=== PATIENT | female | born 1945 | race Caucasian/White ===

== ENCOUNTER 2017-09-03 15:47 | Inpatient (IN) ==
[~2017-09-03 15:47] MED LIST: *HR* Norepinephrine 4 MG/4 ML VIAL IVC ONE
[2017-09-03] MEDS ORDERED: Furosemide 40 MG/4 ML VIAL IVP ONE (15:50)
[2017-09-03] MEDS ORDERED: methylPREDNISolone 125 MG/2 ML VIAL IVP ONE (15:50)
[2017-09-03] MEDS ORDERED: Ipratropium/Albuterol Neb 3 ML IH ONE ×2 (15:50→16:13)
--- NOTE | 2017-09-03 15:52 | Emergency Department Note ---
Disposition Clinical Impression: Respiratory failure, COPD exacerbation, Hypotension, LONNY (acute kidney injury) , Acute respiratory acidosis Disposition: Admitted As Inpatient Condition: Critical General Adult HPI - General Chief complaint: ED Shortness of Breath/Dyspnea Stated complaint: DEBBI Time Seen by Provider: 09/03/17 15:50 - Related Data Home Medications Medication Instructions Recorded Confirmed Albuterol Sulfate [Albuterol 2 puff IH Q4H PRN 09/03/17 09/03/17 Inhaler] Amitriptyline [Elavil] 50 mg PO HS 09/03/17 09/03/17 Budesonide/Formoterol 80/4.5 2 gm IH BIDR 09/03/17 09/03/17 [Symbicort 80/4.5] Citalopram Hydrobromide 20 mg PO DAILY 09/03/17 09/03/17 [Citalopram HBr] Cyclobenzaprine [Flexeril] 10 mg PO TID PRN 09/03/17 09/03/17 Famotidine [Pepcid] 40 mg PO DAILY 09/03/17 09/03/17 Gabapentin [Neurontin] 300 mg PO QID 09/03/17 09/03/17 Lisinopril/Hydrochlorothiazide 1 tab PO DAILY 09/03/17 09/03/17 [Zestoretic 20-25 mg Tablet] Montelukast [Singulair] 10 mg PO DAILY 09/03/17 09/03/17 Omeprazole [PriLOSEC] 20 mg PO DAILY 09/03/17 09/03/17 Simvastatin [Zocor] 40 mg PO DAILY 09/03/17 09/03/17 Sucralfate [Carafate] 1 gm PO QID 09/03/17 09/03/17 levoFLOXacin [Levofloxacin] 500 mg PO DAILY 09/03/17 09/03/17 Allergies Allergy/AdvReac Type Severity Reaction Status Date / Time No Known Allergies Allergy Verified 09/03/17 15:55 Past Medical History - Past Medical History Medical history: Reports: asthma, COPD Psychiatric history: Reports: anxiety - Social History Smoking Status: Current some day smoker Smokeless Tobacco Status: No Alcohol use: Reports: none Drug use: Reports: none Course Vital Signs Temperature 96.1 F L 09/03/17 15:49 Pulse Rate 91 09/03/17 15:49 Respiratory Rate 28 09/03/17 15:49 Blood Pressure 71/44 09/03/17 15:49 O2 Sat by Pulse Oximetry 88 09/03/17 15:49 Temperature 96.1 F L 09/03/17 15:49 Pulse Rate 80 09/03/17 17:45 Respiratory Rate 22 09/03/17 17:45 Blood Pressure 60/39 09/03/17 17:45 O2 Sat by Pulse Oximetry 91 09/03/17 17:41 Oxygen Delivery Oxygen Delivery Ventilator Procedures - Central Line Placement Right IJ Central Line Inserted*: Yes Central Line Insertion: emergent Procedural Pause: verify patient name and date of , timeout performed per policy, perform hand hygiene Patient Placed on Monitor/Pulse Ox: Yes During the Procedure: clinician is wearing sterile gloves, cap, mask,& gown during insertion, sterile field and sterile technique are maintained, patient's face is covered with drape or mask and wearing a cap, everyone in room is wearing a mask Central Line Prep: Chlorhexidine scrub, sterile drapes applied Prep the Procedure Site: apply chloraprep to the skin using a back and forth scrubbing motion, apply chloraprep for 30 seconds (upper body), 1-2 min ( femoral sites), allow prep to dry, drape the patient with a full body drape Local Anesthetic: lidocaine 1% Ultrasound Used for Placement: Yes Central Line Lumen Inserted: triple Post Procedure: sutured in place Patient Tolerated Procedure: well Complications: none - Intubation Time out performed: Yes sedative: Ketamine Laryngoscope: Geetha ET Tube Size: 7.5 ET Tube Uncuffed: No Tube Secured Location: lips Tube Placement Confirmation: visualized tube passing through cords, equal breath sounds bilaterally, confirmation by capnometry Patient Tolerated Procedure: well Intubation Complications: none Medical Decision Making - Lab Data Result diagrams: 09/03/17 16:12 09/03/17 16:12 Lab Results 09/03/17 09/03/17 09/03/17 Range/Units 15:50 16:12 16:12 WBC 7.1 (4.3-11.1) K/mcL RBC 4.00 (3.82-4.97) M/mcL Hgb 12.3 (11.5-15.4) g/dL Hct 37.6 (35.3-44.9) % MCV 94.0 (83.0-100.0) fL MCH 30.8 (28.0-33.3) pg MCHC 32.7 (31.6-35.5) g/dL RDW 14.0 (11.5-14.5) % Plt Count 289 (140-400) K/mcL MPV 9.8 (9.4-12.4) fL Immature Gran % 0.3 (0-4) % Seg Neutrophils % 62.9 % Lymphocytes % 28.3 % Monocytes % 6.5 % Eosinophils % 1.7 % Basophils % 0.3 % Neutrophils # 4.5 (1.6-8.9) K/mcL Lymphocytes # 2.0 (0.6-4.6) K/mcL Monocytes # 0.5 (0.0-1.3) K/mcL Eosinophils # 0.1 (0.0-0.6) K/mcL Basophils # 0.0 (0.0-0.2) K/mcL PT 13.0 H (9.4-12.1) Seconds INR 1.2 ABG pH (7.32-7.45) pH Units ABG pCO2 (35-45) mmHg ABG pO2 (85-104) mmHg ABG HCO3 (21-27) mEq/L ABG Total CO2 (20-26) mEq/L ABG O2 Saturation (95-98) % ABG Base Excess (-2 to 3) mEq/L Sodium (136-145) mEq/L Potassium (3.5-4.5) mEq/L Chloride (98-109) mEq/L Carbon Dioxide (19-29) mEq/L BUN (7-20) mg/dL Creatinine (0.57-1.11) mg/dL Est GFR ( Amer) (> 60) Est GFR (Non-Af Amer) (> 60) BUN/Creatinine Ratio (6-26) Glucose (70-99) mg/dL POC Glucose 217 H (58-89) Calculated Osmolality (280-300) Lactic Acid (0.5-2.2) mmol/L Calcium (8.6-10.8) mg/dL Total Bilirubin (0.2-1.2) mg/dL Direct Bilirubin (0.0-0.5) mg/dL Indirect Bilirubin (0.0-1.2) mg/dL AST (5-34) Units/L ALT (0-55) Units/L Alkaline Phosphatase (38-126) Units/L Troponin I (0-0.03) ng/mL B-Natriuretic Peptide (0-100) pg/mL Serum Total Protein (6.0-8.3) g/dL Albumin (3.5-5.0) g/dL Globulin (2.4-3.5) g/dL Albumin/Globulin Ratio (1.1-2.2) Urine Color (Yellow) Urine Clarity (Clear) Urine pH (5.0-8.0) pH Units Ur Specific [place] (1.010-1.025) Urine Protein (Neg-Trace) mg/dL Urine Glucose (UA) (Normal) mg/dL Urine Ketones (Negative) mg/dL Urine Blood (Negative) Urine Nitrite (Negative) Urine Bilirubin (Negative) Urine Urobilinogen (Normal) mg/dL Ur Leukocyte Esterase (Negative) Urine Microscopic RBC (0-3) per hpf Urine Microscopic WBC (0-3) per hpf Ur Squamous Epith Cells (None-Few) per lpf Urine Bacteria (None-Few) per hpf Hyaline Casts (None-Few) per lpf Ur Culture Indicated? (NO) Person Notif of Crit 09/03/17 09/03/17 09/03/17 Range/Units 16:12 16:12 16:12 WBC (4.3-11.1) K/mcL RBC (3.82-4.97) M/mcL Hgb (11.5-15.4) g/dL Hct (35.3-44.9) % MCV (83.0-100.0) fL MCH (28.0-33.3) pg MCHC (31.6-35.5) g/dL RDW (11.5-14.5) % Plt Count (140-400) K/mcL MPV (9.4-12.4) fL Immature Gran % (0-4) % Seg Neutrophils % % Lymphocytes % % Monocytes % % Eosinophils % % Basophils % % Neutrophils # (1.6-8.9) K/mcL Lymphocytes # (0.6-4.6) K/mcL Monocytes # (0.0-1.3) K/mcL Eosinophils # (0.0-0.6) K/mcL Basophils # (0.0-0.2) K/mcL PT (9.4-12.1) Seconds INR ABG pH (7.32-7.45) pH Units ABG pCO2 (35-45) mmHg ABG pO2 (85-104) mmHg ABG HCO3 (21-27) mEq/L ABG Total CO2 (20-26) mEq/L ABG O2 Saturation (95-98) % ABG Base Excess (-2 to 3) mEq/L Sodium 140 (136-145) mEq/L Potassium 3.4 L (3.5-4.5) mEq/L Chloride 111 H (98-109) mEq/L Carbon Dioxide 17 L (19-29) mEq/L BUN 40 H (7-20) mg/dL Creatinine 2.12 H (0.57-1.11) mg/dL Est GFR ( Amer) 28 L (> 60) Est GFR (Non-Af Amer) 23 L (> 60) BUN/Creatinine Ratio 19 (6-26) Glucose 187 H (70-99) mg/dL POC Glucose (58-89) Calculated Osmolality 305 H (280-300) Lactic Acid 2.1 (0.5-2.2) mmol/L Calcium 7.8 L (8.6-10.8) mg/dL Total Bilirubin 0.6 (0.2-1.2) mg/dL Direct Bilirubin 0.3 (0.0-0.5) mg/dL Indirect Bilirubin 0.3 (0.0-1.2) mg/dL AST 13 (5-34) Units/L ALT 8 (0-55) Units/L Alkaline Phosphatase 127 H (38-126) Units/L Troponin I 0.01 (0-0.03) ng/mL B-Natriuretic Peptide (0-100) pg/mL Serum Total Protein 5.5 L (6.0-8.3) g/dL Albumin 2.7 L (3.5-5.0) g/dL Globulin 2.8 (2.4-3.5) g/dL Albumin/Globulin Ratio 1.0 L (1.1-2.2) Urine Color (Yellow) Urine Clarity (Clear) Urine pH (5.0-8.0) pH Units Ur Specific [place] (1.010-1.025) Urine Protein (Neg-Trace) mg/dL Urine Glucose (UA) (Normal) mg/dL Urine Ketones (Negative) mg/dL Urine Blood (Negative) Urine Nitrite (Negative) Urine Bilirubin (Negative) Urine Urobilinogen (Normal) mg/dL Ur Leukocyte Esterase (Negative) Urine Microscopic RBC (0-3) per hpf Urine Microscopic WBC (0-3) per hpf Ur Squamous Epith Cells (None-Few) per lpf Urine Bacteria (None-Few) per hpf Hyaline Casts (None-Few) per lpf Ur Culture Indicated? (NO) Person Notif of Crit 09/03/17 09/03/17 09/03/17 Range/Units 16:12 16:17 16:30 WBC (4.3-11.1) K/mcL RBC (3.82-4.97) M/mcL Hgb (11.5-15.4) g/dL Hct (35.3-44.9) % MCV (83.0-100.0) fL MCH (28.0-33.3) pg MCHC (31.6-35.5) g/dL RDW (11.5-14.5) % Plt Count (140-400) K/mcL MPV (9.4-12.4) fL Immature Gran % (0-4) % Seg Neutrophils % % Lymphocytes % % Monocytes % % Eosinophils % % Basophils % % Neutrophils # (1.6-8.9) K/mcL Lymphocytes # (0.6-4.6) K/mcL Monocytes # (0.0-1.3) K/mcL Eosinophils # (0.0-0.6) K/mcL Basophils # (0.0-0.2) K/mcL PT (9.4-12.1) Seconds INR ABG pH 7.19 L* (7.32-7.45) pH Units ABG pCO2 55 H (35-45) mmHg ABG pO2 81 L (85-104) mmHg ABG HCO3 21 (21-27) mEq/L ABG Total CO2 23 (20-26) mEq/L ABG O2 Saturation 93 L (95-98) % ABG Base Excess -8 L (-2 to 3) mEq/L Sodium (136-145) mEq/L Potassium (3.5-4.5) mEq/L Chloride (98-109) mEq/L Carbon Dioxide (19-29) mEq/L BUN (7-20) mg/dL Creatinine (0.57-1.11) mg/dL Est GFR ( Amer) (> 60) Est GFR (Non-Af Amer) (> 60) BUN/Creatinine Ratio (6-26) Glucose (70-99) mg/dL POC Glucose (58-89) Calculated Osmolality (280-300) Lactic Acid (0.5-2.2) mmol/L Calcium (8.6-10.8) mg/dL Total Bilirubin (0.2-1.2) mg/dL Direct Bilirubin (0.0-0.5) mg/dL Indirect Bilirubin (0.0-1.2) mg/dL AST (5-34) Units/L ALT (0-55) Units/L Alkaline Phosphatase (38-126) Units/L Troponin I (0-0.03) ng/mL B-Natriuretic Peptide 80 (0-100) pg/mL Serum Total Protein (6.0-8.3) g/dL Albumin (3.5-5.0) g/dL Globulin (2.4-3.5) g/dL Albumin/Globulin Ratio (1.1-2.2) Urine Color Yellow (Yellow) Urine Clarity Cloudy A (Clear) Urine pH 5.5 (5.0-8.0) pH Units Ur Specific [place] 1.025 (1.010-1.025) Urine Protein Negative (Neg-Trace) mg/dL Urine Glucose (UA) Normal (Normal) mg/dL Urine Ketones Negative (Negative) mg/dL Urine Blood Negative (Negative) Urine Nitrite Negative (Negative) Urine Bilirubin Small H (Negative) Urine Urobilinogen Normal (Normal) mg/dL Ur Leukocyte Esterase Negative (Negative) Urine Microscopic RBC 3-5 H (0-3) per hpf Urine Microscopic WBC 3-5 H (0-3) per hpf Ur Squamous Epith Cells Many H (None-Few) per lpf Urine Bacteria None Seen (None-Few) per hpf Hyaline Casts Many H (None-Few) per lpf Ur Culture Indicated? NO (NO) Person Notif of Crit /ER Critical Care Time Critical Care Time: Yes Total Critical Care Time: 45 Attestation: Patient presented tachypneic and dyspneic. She required BiPAP therapy, ABG evaluation, and then endotracheal intubation with admission to the ICU The high probability of a clinically significant, sudden or life threatening deterioration of the [] system(s) required my full and direct attention, intervention and personal management. The aggregate critical care time was [] minutes. This time is in addition to time spent performing reported procedures but includes the following: [] Data Review and interpretation [] Patient assessment and monitoring of vital signs [] Documentation [] Medication orders and management Attestation Statement - Attestation Attestation: I examined this patient and my medical decision-making was reviewed with the Resident Physician. I agree with the documented findings, disposition and treatment plan as described except to the extent set forth below. [id number] time provided Patient arrives by EMS complaining of dyspnea. She was hypoxic prehospital. She is visibly dyspneic and tachypneic at the time of arrival. 18:00: The patient became increasingly fatigued in terms of her respiratory effort. We did attempt a trial of BiPAP but she continued to decompensate. We did electively intubate her. She was hypotensive so a triple lumen central venous catheter was placed. IV pressors initiated. Patient will be admitted to the intensive care unit in critical condition
--- NOTE | 2017-09-03 16:01 | Emergency Department Note ---
Disposition Clinical Impression: COPD exacerbation, LONNY (acute kidney injury), Acute respiratory acidosis Respiratory failure Qualifiers: Chronicity: acute Respiratory failure complication: unspecified whether with hypoxia or hypercapnia Qualified Code(s): J96.00 - Acute respiratory failure, unspecified whether with hypoxia or hypercapnia Hypotension Qualifiers: Hypotension type: unspecified hypotension type Qualified Code(s): I95.9 - Hypotension, unspecified Disposition: Admitted As Inpatient Condition: Critical Time of Disposition: 17:59 SOB HPI - General Chief Complaint: ED Shortness of Breath/Dyspnea Stated Complaint: DEBBI Time Seen by Provider: 09/03/17 15:50 Source: EMS Mode of arrival: EMS Limitations: other Nursing Notes Reviewed: Yes Vital Signs Reviewed: Yes - History of Present Illness 72-year-old female with known history of COPD arrives [facility] emergency department in acute respiratory distress. The patient was noted to have an oxygen left saturation level of 58% upon arrival EMS. The patient was initially complaining of some abdominal pain but she denies any pain upon arrival to the emergency department. After being placed on 15 L nonrebreather her O2 saturation dane to 90%. Upon arrival to the emergency department her O2 saturation was 96-98%. The patient is intermittently sleepy and somnolent but easily arousable and answering questions. She is alert and answering questions appropriately. She has no signs of hypoxia. She is in respiratory distress with a large amount of rhonchi and bilateral lobes and wheezing noted as well. The patient denies any complaints of pain at this time. Pt Subjective Complaint: shortness of breath Onset (ago): unknown Context: medication noncompliance Severity: moderate, severe Known history of: COPD Associated symptoms: Reports: cough, wheezing, sputum production Treatment prior to arrival: oxygen Cough present: Yes Cough Description: Involuntary, Productive Cough Frequency: Continuous Sputum production: Yes Sputum Amount: Moderate - Related Data Home oxygen amount: none Home Medications Medication Instructions Recorded Confirmed Albuterol Sulfate [Albuterol 2 puff IH Q4H PRN 09/03/17 09/03/17 Inhaler] Amitriptyline [Elavil] 50 mg PO HS 09/03/17 09/03/17 Budesonide/Formoterol 80/4.5 2 gm IH BIDR 09/03/17 09/03/17 [Symbicort 80/4.5] Citalopram Hydrobromide 20 mg PO DAILY 09/03/17 09/03/17 [Citalopram HBr] Cyclobenzaprine [Flexeril] 10 mg PO TID PRN 09/03/17 09/03/17 Famotidine [Pepcid] 40 mg PO DAILY 09/03/17 09/03/17 Gabapentin [Neurontin] 300 mg PO QID 09/03/17 09/03/17 Lisinopril/Hydrochlorothiazide 1 tab PO DAILY 09/03/17 09/03/17 [Zestoretic 20-25 mg Tablet] Montelukast [Singulair] 10 mg PO DAILY 09/03/17 09/03/17 Omeprazole [PriLOSEC] 20 mg PO DAILY 09/03/17 09/03/17 Simvastatin [Zocor] 40 mg PO DAILY 09/03/17 09/03/17 Sucralfate [Carafate] 1 gm PO QID 09/03/17 09/03/17 levoFLOXacin [Levofloxacin] 500 mg PO DAILY 09/03/17 09/03/17 Allergies Allergy/AdvReac Type Severity Reaction Status Date / Time No Known Allergies Allergy Verified 09/03/17 15:55 All systems ED: reviewed and negative except as stated. Constitutional: Reports: weakness. Denies: fever, chills Cardiovascular: Reports: dyspnea on exertion. Denies: chest pain, edema Respiratory: Reports: cough, dyspnea, wheezes, sputum production. Denies: hemoptysis Gastrointestinal: Denies: abdominal pain, nausea, vomiting Genitourinary: Denies: urgency, dysuria Musculoskeletal: Denies: back pain, arthralgia, myalgia Neurological: Denies: headache Past Medical History - Past Medical History Attestation: Yes The following information was validated with the patient. Source: patient, old records reviewed Medical history: Reports: asthma, COPD Psychiatric history: Reports: anxiety - Social History Smoking Status: Current some day smoker Smokeless Tobacco Status: No Alcohol use: Reports: none Drug use: Reports: none Physical Exam - General Limitations: other General appearance: alert, lethargic, in distress (acute respiratory) - Head Head exam: atraumatic, normocephalic, normal inspection - Eye Eye exam: Present: normal appearance, PERRL, EOMI - ENT ENT exam: normal exam, normal oropharynx, mucous membranes moist - Neck Neck exam: Present: normal inspection, full ROM, trachea midline - Chest Chest inspection: Present: normal inspection, symmetric chest wall rise - Respiratory Respiratory exam: Present: respiratory distress, wheezes, accessory muscle use - Cardiovascular Cardiovascular exam: Present: regular rate, normal rhythm, normal heart sounds - Abdominal Exam Abdominal exam: Present: soft, Non-Tender. Absent: tenderness, distention, guarding, rebound, rigidity - Extremities Exam Extremities exam: Present: normal inspection, full ROM. Absent: tenderness, pedal edema Course Vital Signs Temperature 96.1 F L 09/03/17 15:49 Pulse Rate 91 09/03/17 15:49 Respiratory Rate 28 09/03/17 15:49 Blood Pressure 71/44 09/03/17 15:49 O2 Sat by Pulse Oximetry 88 09/03/17 15:49 Temperature 96.1 F L 09/03/17 15:49 Pulse Rate 80 09/03/17 17:45 Respiratory Rate 22 09/03/17 17:45 Blood Pressure 60/39 09/03/17 17:45 O2 Sat by Pulse Oximetry 91 09/03/17 17:41 Oxygen Delivery Oxygen Delivery Ventilator Shortness of Breath/Dyspnea - [facility] Narrative Medical decision making narrative: Patient was subsequently intubated due to respiratory failure. The patient also had a central line placed for pressure support. She was started on Levaphed. In addition the patient was given an amp of bicarbonate for worsening pH. The patient will be admitted to the ICU. I am concerned about patient's respiratory status as she is currently on 100% FiO2 after intubation. The patient has a large lung volume and this is likely contributing to pushing on the patient's great vessels and also likely contributed to the patient's hypotension. The patient does not have a lactic acidosis but infection cannot be ruled out. So we will start the patient on monotherapy Levaquin at this time. The patient also has an LONNY. The patient tolerated the procedure well. The patient will be admitted to the ICU, accepted by Dr. Mcfarland. - Lab Data Lab results reviewed: Yes I reviewed the patient's lab results. Result diagrams: 09/03/17 16:12 09/03/17 16:12 Lab Results 09/03/17 09/03/17 09/03/17 Range/Units 15:50 16:12 16:12 WBC 7.1 (4.3-11.1) K/mcL RBC 4.00 (3.82-4.97) M/mcL Hgb 12.3 (11.5-15.4) g/dL Hct 37.6 (35.3-44.9) % MCV 94.0 (83.0-100.0) fL MCH 30.8 (28.0-33.3) pg MCHC 32.7 (31.6-35.5) g/dL RDW 14.0 (11.5-14.5) % Plt Count 289 (140-400) K/mcL MPV 9.8 (9.4-12.4) fL Immature Gran % 0.3 (0-4) % Seg Neutrophils % 62.9 % Lymphocytes % 28.3 % Monocytes % 6.5 % Eosinophils % 1.7 % Basophils % 0.3 % Neutrophils # 4.5 (1.6-8.9) K/mcL Lymphocytes # 2.0 (0.6-4.6) K/mcL Monocytes # 0.5 (0.0-1.3) K/mcL Eosinophils # 0.1 (0.0-0.6) K/mcL Basophils # 0.0 (0.0-0.2) K/mcL PT 13.0 H (9.4-12.1) Seconds INR 1.2 ABG pH (7.32-7.45) pH Units ABG pCO2 (35-45) mmHg ABG pO2 (85-104) mmHg ABG HCO3 (21-27) mEq/L ABG Total CO2 (20-26) mEq/L ABG O2 Saturation (95-98) % ABG Base Excess (-2 to 3) mEq/L Sodium (136-145) mEq/L Potassium (3.5-4.5) mEq/L Chloride (98-109) mEq/L Carbon Dioxide (19-29) mEq/L BUN (7-20) mg/dL Creatinine (0.57-1.11) mg/dL Est GFR ( Amer) (> 60) Est GFR (Non-Af Amer) (> 60) BUN/Creatinine Ratio (6-26) Glucose (70-99) mg/dL POC Glucose 217 H (58-89) Calculated Osmolality (280-300) Lactic Acid (0.5-2.2) mmol/L Calcium (8.6-10.8) mg/dL Total Bilirubin (0.2-1.2) mg/dL Direct Bilirubin (0.0-0.5) mg/dL Indirect Bilirubin (0.0-1.2) mg/dL AST (5-34) Units/L ALT (0-55) Units/L Alkaline Phosphatase (38-126) Units/L Troponin I (0-0.03) ng/mL B-Natriuretic Peptide (0-100) pg/mL Serum Total Protein (6.0-8.3) g/dL Albumin (3.5-5.0) g/dL Globulin (2.4-3.5) g/dL Albumin/Globulin Ratio (1.1-2.2) Urine Color (Yellow) Urine Clarity (Clear) Urine pH (5.0-8.0) pH Units Ur Specific [place] (1.010-1.025) Urine Protein (Neg-Trace) mg/dL Urine Glucose (UA) (Normal) mg/dL Urine Ketones (Negative) mg/dL Urine Blood (Negative) Urine Nitrite (Negative) Urine Bilirubin (Negative) Urine Urobilinogen (Normal) mg/dL Ur Leukocyte Esterase (Negative) Urine Microscopic RBC (0-3) per hpf Urine Microscopic WBC (0-3) per hpf Ur Squamous Epith Cells (None-Few) per lpf Urine Bacteria (None-Few) per hpf Hyaline Casts (None-Few) per lpf Ur Culture Indicated? (NO) Person Notif of Crit 09/03/17 09/03/17 09/03/17 Range/Units 16:12 16:12 16:12 WBC (4.3-11.1) K/mcL RBC (3.82-4.97) M/mcL Hgb (11.5-15.4) g/dL Hct (35.3-44.9) % MCV (83.0-100.0) fL MCH (28.0-33.3) pg MCHC (31.6-35.5) g/dL RDW (11.5-14.5) % Plt Count (140-400) K/mcL MPV (9.4-12.4) fL Immature Gran % (0-4) % Seg Neutrophils % % Lymphocytes % % Monocytes % % Eosinophils % % Basophils % % Neutrophils # (1.6-8.9) K/mcL Lymphocytes # (0.6-4.6) K/mcL Monocytes # (0.0-1.3) K/mcL Eosinophils # (0.0-0.6) K/mcL Basophils # (0.0-0.2) K/mcL PT (9.4-12.1) Seconds INR ABG pH (7.32-7.45) pH Units ABG pCO2 (35-45) mmHg ABG pO2 (85-104) mmHg ABG HCO3 (21-27) mEq/L ABG Total CO2 (20-26) mEq/L ABG O2 Saturation (95-98) % ABG Base Excess (-2 to 3) mEq/L Sodium 140 (136-145) mEq/L Potassium 3.4 L (3.5-4.5) mEq/L Chloride 111 H (98-109) mEq/L Carbon Dioxide 17 L (19-29) mEq/L BUN 40 H (7-20) mg/dL Creatinine 2.12 H (0.57-1.11) mg/dL Est GFR ( Amer) 28 L (> 60) Est GFR (Non-Af Amer) 23 L (> 60) BUN/Creatinine Ratio 19 (6-26) Glucose 187 H (70-99) mg/dL POC Glucose (58-89) Calculated Osmolality 305 H (280-300) Lactic Acid 2.1 (0.5-2.2) mmol/L Calcium 7.8 L (8.6-10.8) mg/dL Total Bilirubin 0.6 (0.2-1.2) mg/dL Direct Bilirubin 0.3 (0.0-0.5) mg/dL Indirect Bilirubin 0.3 (0.0-1.2) mg/dL AST 13 (5-34) Units/L ALT 8 (0-55) Units/L Alkaline Phosphatase 127 H (38-126) Units/L Troponin I 0.01 (0-0.03) ng/mL B-Natriuretic Peptide (0-100) pg/mL Serum Total Protein 5.5 L (6.0-8.3) g/dL Albumin 2.7 L (3.5-5.0) g/dL Globulin 2.8 (2.4-3.5) g/dL Albumin/Globulin Ratio 1.0 L (1.1-2.2) Urine Color (Yellow) Urine Clarity (Clear) Urine pH (5.0-8.0) pH Units Ur Specific [place] (1.010-1.025) Urine Protein (Neg-Trace) mg/dL Urine Glucose (UA) (Normal) mg/dL Urine Ketones (Negative) mg/dL Urine Blood (Negative) Urine Nitrite (Negative) Urine Bilirubin (Negative) Urine Urobilinogen (Normal) mg/dL Ur Leukocyte Esterase (Negative) Urine Microscopic RBC (0-3) per hpf Urine Microscopic WBC (0-3) per hpf Ur Squamous Epith Cells (None-Few) per lpf Urine Bacteria (None-Few) per hpf Hyaline Casts (None-Few) per lpf Ur Culture Indicated? (NO) Person Notif of Crit 09/03/17 09/03/17 09/03/17 Range/Units 16:12 16:17 16:30 WBC (4.3-11.1) K/mcL RBC (3.82-4.97) M/mcL Hgb (11.5-15.4) g/dL Hct (35.3-44.9) % MCV (83.0-100.0) fL MCH (28.0-33.3) pg MCHC (31.6-35.5) g/dL RDW (11.5-14.5) % Plt Count (140-400) K/mcL MPV (9.4-12.4) fL Immature Gran % (0-4) % Seg Neutrophils % % Lymphocytes % % Monocytes % % Eosinophils % % Basophils % % Neutrophils # (1.6-8.9) K/mcL Lymphocytes # (0.6-4.6) K/mcL Monocytes # (0.0-1.3) K/mcL Eosinophils # (0.0-0.6) K/mcL Basophils # (0.0-0.2) K/mcL PT (9.4-12.1) Seconds INR ABG pH 7.19 L* (7.32-7.45) pH Units ABG pCO2 55 H (35-45) mmHg ABG pO2 81 L (85-104) mmHg ABG HCO3 21 (21-27) mEq/L ABG Total CO2 23 (20-26) mEq/L ABG O2 Saturation 93 L (95-98) % ABG Base Excess -8 L (-2 to 3) mEq/L Sodium (136-145) mEq/L Potassium (3.5-4.5) mEq/L Chloride (98-109) mEq/L Carbon Dioxide (19-29) mEq/L BUN (7-20) mg/dL Creatinine (0.57-1.11) mg/dL Est GFR ( Amer) (> 60) Est GFR (Non-Af Amer) (> 60) BUN/Creatinine Ratio (6-26) Glucose (70-99) mg/dL POC Glucose (58-89) Calculated Osmolality (280-300) Lactic Acid (0.5-2.2) mmol/L Calcium (8.6-10.8) mg/dL Total Bilirubin (0.2-1.2) mg/dL Direct Bilirubin (0.0-0.5) mg/dL Indirect Bilirubin (0.0-1.2) mg/dL AST (5-34) Units/L ALT (0-55) Units/L Alkaline Phosphatase (38-126) Units/L Troponin I (0-0.03) ng/mL B-Natriuretic Peptide 80 (0-100) pg/mL Serum Total Protein (6.0-8.3) g/dL Albumin (3.5-5.0) g/dL Globulin (2.4-3.5) g/dL Albumin/Globulin Ratio (1.1-2.2) Urine Color Yellow (Yellow) Urine Clarity Cloudy A (Clear) Urine pH 5.5 (5.0-8.0) pH Units Ur Specific [place] 1.025 (1.010-1.025) Urine Protein Negative (Neg-Trace) mg/dL Urine Glucose (UA) Normal (Normal) mg/dL Urine Ketones Negative (Negative) mg/dL Urine Blood Negative (Negative) Urine Nitrite Negative (Negative) Urine Bilirubin Small H (Negative) Urine Urobilinogen Normal (Normal) mg/dL Ur Leukocyte Esterase Negative (Negative) Urine Microscopic RBC 3-5 H (0-3) per hpf Urine Microscopic WBC 3-5 H (0-3) per hpf Ur Squamous Epith Cells Many H (None-Few) per lpf Urine Bacteria None Seen (None-Few) per hpf Hyaline Casts Many H (None-Few) per lpf Ur Culture Indicated? NO (NO) Person Notif of Crit /TREASURE 09/03/17 Range/Units 17:43 WBC (4.3-11.1) K/mcL RBC (3.82-4.97) M/mcL Hgb (11.5-15.4) g/dL Hct (35.3-44.9) % MCV (83.0-100.0) fL MCH (28.0-33.3) pg MCHC (31.6-35.5) g/dL RDW (11.5-14.5) % Plt Count (140-400) K/mcL MPV (9.4-12.4) fL Immature Gran % (0-4) % Seg Neutrophils % % Lymphocytes % % Monocytes % % Eosinophils % % Basophils % % Neutrophils # (1.6-8.9) K/mcL Lymphocytes # (0.6-4.6) K/mcL Monocytes # (0.0-1.3) K/mcL Eosinophils # (0.0-0.6) K/mcL Basophils # (0.0-0.2) K/mcL PT (9.4-12.1) Seconds INR ABG pH 7.03 L* D (7.32-7.45) pH Units ABG pCO2 62 H (35-45) mmHg ABG pO2 96 (85-104) mmHg ABG HCO3 16 L (21-27) mEq/L ABG Total CO2 18 L (20-26) mEq/L ABG O2 Saturation 92 L (95-98) % ABG Base Excess -15 L (-2 to 3) mEq/L Sodium (136-145) mEq/L Potassium (3.5-4.5) mEq/L Chloride (98-109) mEq/L Carbon Dioxide (19-29) mEq/L BUN (7-20) mg/dL Creatinine (0.57-1.11) mg/dL Est GFR ( Amer) (> 60) Est GFR (Non-Af Amer) (> 60) BUN/Creatinine Ratio (6-26) Glucose (70-99) mg/dL POC Glucose (58-89) Calculated Osmolality (280-300) Lactic Acid (0.5-2.2) mmol/L Calcium (8.6-10.8) mg/dL Total Bilirubin (0.2-1.2) mg/dL Direct Bilirubin (0.0-0.5) mg/dL Indirect Bilirubin (0.0-1.2) mg/dL AST (5-34) Units/L ALT (0-55) Units/L Alkaline Phosphatase (38-126) Units/L Troponin I (0-0.03) ng/mL B-Natriuretic Peptide (0-100) pg/mL Serum Total Protein (6.0-8.3) g/dL Albumin (3.5-5.0) g/dL Globulin (2.4-3.5) g/dL Albumin/Globulin Ratio (1.1-2.2) Urine Color (Yellow) Urine Clarity (Clear) Urine pH (5.0-8.0) pH Units Ur Specific [place] (1.010-1.025) Urine Protein (Neg-Trace) mg/dL Urine Glucose (UA) (Normal) mg/dL Urine Ketones (Negative) mg/dL Urine Blood (Negative) Urine Nitrite (Negative) Urine Bilirubin (Negative) Urine Urobilinogen (Normal) mg/dL Ur Leukocyte Esterase (Negative) Urine Microscopic RBC (0-3) per hpf Urine Microscopic WBC (0-3) per hpf Ur Squamous Epith Cells (None-Few) per lpf Urine Bacteria (None-Few) per hpf Hyaline Casts (None-Few) per lpf Ur Culture Indicated? (NO) Person Notif of Elvin ALEJANDRA [facility] - Radiology Data Radiology results reviewed: Yes I reviewed the patient's radiology results. - EKG Data EKG attestation: Yes I reviewed and interpreted this EKG. EKG results narrative: Heart rate 91 bpm. NJ interval 197 ms. QTc 449 ms. Normal sinus rhythm. No ST elevation or ST depression noted. EKG similar appearance in morphology to EKG from June 24.
[2017-09-03] MEDS ORDERED: 0.9 % Sodium Chloride 1,000 ML IVC ONE (16:19)
[2017-09-03 16:21] LABS: Basophils % 0.3 %; Eosinophils # 0.1 K/mcL (0.0-0.6); Eosinophils % 1.7 %; Hematocrit 37.6 % (35.3-44.9); Hemoglobin 12.3 g/dL (11.5-15.4); Immature Granulocytes % 0.3 % (0-4); Lymphocytes % 28.3 %; Mean Corpuscular HGB Conc 32.7 g/dL (31.6-35.5); Mean Corpuscular Hemoglobin 30.8 pg (28.0-33.3); Mean Platelet Volume 9.8 fL (9.4-12.4); Monocytes # 0.5 K/mcL (0.0-1.3); Monocytes % 6.5 %; Neutrophils # 4.5 K/mcL (1.6-8.9); Platelet Count 289 K/mcL (140-400); Segmented Neutrophils % 62.9 %
[2017-09-03] MEDS ORDERED: Albuterol 2.5 MG/3 ML NEBULIZER IH ONE (16:21)
[2017-09-03 16:22] LABS: ABG Base Excess -8 mEq/L (-2 to 3); ABG HCO3 21 mEq/L (21-27); ABG Oxygen Saturation 93 % (95-98); ABG PCO2 55 mmHg (35-45); ABG PH 7.19 pH Units (7.32-7.45); ABG PO2 81 mmHg (85-104); ABG TCO2 23 mEq/L (20-26)
[2017-09-03 16:29] LABS: INR 1.2
[2017-09-03 16:37] LABS: Albumin 2.7 g/dL (3.5-5.0); Bilirubin,Direct 0.3 mg/dL (0.0-0.5); Bilirubin,Indirect 0.3 mg/dL (0.0-1.2); Bilirubin,Total 0.6 mg/dL (0.2-1.2); Calcium 7.8 mg/dL (8.6-10.8); Globulin 2.8 g/dL (2.4-3.5); Potassium 3.4 mEq/L (3.5-4.5); Total Protein 5.5 g/dL (6.0-8.3)
[2017-09-03 16:37] LABS: Bilirubin,Urine Small (Negative); Blood,Urine Negative (Negative); Clarity,Urine Cloudy (Clear); Color,Urine Yellow (Yellow); Glucose,Urine (UA) Normal (Normal); Ketones,Urine Negative (Negative); Leukocyte Esterase,Urine Negative (Negative); Nitrite,Urine Negative (Negative); PH,Urine 5.5 pH Units (5.0-8.0); Protein,Urine Negative (Neg-Trace); Specific Gravity,Urine 1.025 (1.010-1.025); Urobilinogen,Urine Normal (Normal)
[2017-09-03 16:39] LABS: Bacteria,Urine None Seen per hpf (None-Few); Squamous Epithelial Cell,Urine Many per lpf (None-Few)
[2017-09-03 16:56] LABS: Hyaline Casts,Urine Many per lpf (None-Few)
[2017-09-03] MEDS ORDERED: Ketamine *HR* 500 MG/10 ML MDV IV ONE (17:06)
[2017-09-03] MEDS ORDERED: Ketamine *HR* 500 MG/10 ML MDV ONE (17:06)
[2017-09-03 17:47] LABS: ABG Base Excess -15 mEq/L (-2 to 3); ABG HCO3 16 mEq/L (21-27); ABG Oxygen Saturation 92 % (95-98); ABG PCO2 62 mmHg (35-45); ABG PH 7.03 pH Units (7.32-7.45); ABG PO2 96 mmHg (85-104); ABG TCO2 18 mEq/L (20-26)
[2017-09-03] MEDS ORDERED: Levofloxacin 500 MG/100 ML 500 MG/100 ML BAG IVPB ONE (17:58)
[2017-09-03] MEDS: Norepinephrine 4 MG in D5% in Water 250 ML IVC SCH (18:00)
[2017-09-03] MEDS: Dexmedetomidine HCl 400 MCG/100 ML MLS IVC SCH (18:15)
[2017-09-03] MEDS ORDERED: Naloxone 0.4 MG/ML INJ IVP PRN (19:42)
[2017-09-03] MEDS ORDERED: Ipratropium/Albuterol Neb 3 ML ONE (19:56)
[2017-09-03] MEDS: Ipratropium/Albuterol Neb 3 ML IH SCH ×2 (20:06→23:58)
[2017-09-03] MEDS ORDERED: Lacri-Lube 3.5 GM TUBE BOTH EYES PRN (20:20)
[2017-09-03] MEDS ORDERED: Dextrose Gel 15 GM PO PRN ×2 (20:23)
[2017-09-03] MEDS ORDERED: D5% in Water 1,000 ML IVC PRN (20:23)
[2017-09-03] MEDS ORDERED: *HR* Dextrose 50 % in Water (Syg) 50 ML SYRINGE IVP PRN (20:23)
--- NOTE | 2017-09-03 20:29 | Internal Med History&Physical ---
Date of Encounter: 09/03/17 Time of Encounter: 20:05 Assessment and Plan (1) Acute on chronic respiratory failure with hypoxia and hypercapnia Current visit: Yes Status: Acute Acute on chronic hypercapnic and hypoxic respiratory failure with respiratory acidosis - secondary to acute exacerbation of COPD Patient is currently intubated, sedated and mechanically ventilated Continue current vent settings - ALIICA baker, PEEP:10, VT:350, RR:14, FiO2:80% Repeat ABG in 1 hour and in a.m. Continue DuoNeb breathing treatment, IV Solu-Medrol, Symbicort, empiric IV Rocephin IV Protonix, DVT prophylaxis Chest x-ray - no acute cardiopulmonary process, ET tube above the matteo, right IJ central catheter in good position EKG - sinus rhythm with no acute ST-T changes Troponin - 0.01 BNP - 80 Pulmonology consult for respiratory failure Cardiac monitoring, pulse ox, labs in a.m., monitor closely, guarded condition and guarded prognosis (2) Hypotension Current visit: Yes Status: Acute Hypotension, now improving - we will try to wean off Levophed Patient does have a history of essential hypertension - hold Lisinopril/HCTZ Qualifiers: Hypotension type: unspecified hypotension type Qualified Code(s): I95.9 - Hypotension, unspecified (3) LONNY (acute kidney injury) Current visit: Yes Status: Acute Acute kidney injury - possibly secondary to hypotension and volume depletion/ dehydration Continue IV fluids, labs in a.m. (4) Acute respiratory acidosis Current visit: Yes Status: Acute Acute respiratory acidosis secondary to acute on chronic hypoxic and hypercapnic respiratory failure Plan as above (5) DVT prophylaxis Current visit: Yes Status: Acute Heparin subcutaneous Internal Medicine - H&P: HPI Chief complaint: Shortness of breath Admitted From: Emergency Dept Plans for Post Hospital Care: Home History of present illness: Ms. Green is a 72 year old female with past medical history of hypertension, COPD, depression, GERD and hyperlipidemia. She presents to the ED with complaints of shortness of breath and in acute respiratory distress. Examined in the ICU. Patient is intubated, sedated and mechanically ventilated. Unable to obtain history from patient. No family members at bedside. All history is obtained from ER documentation and from RN. On initial presentation, patient was in acute distress and was hypoxic with O2 sat of 50%. She was initially placed on 15 L nonrebreather and hypoxia improved. Patient continued to be somnolent but easily arousable and was able to answer questions. She also had rhonchi and wheezing bilaterally. Patient apparently did not complain of chest pain. Patient reported cough and wheezing with sputum production. No other complaints. Patient eventually required intubation due to worsening hypoxic hypercapnic respiratory failure. Patient also requires Levophed for hypotension. Right IJ central line was placed in the ED. No other acute events. Initial workup in the ED is significant for hypoxia and hypercapnia. Patient also has elevated creatinine at 2.12. Troponin is negative and BNP is within normal limits. Chest x-ray is negative for lobar pneumonia. Admitted for acute respiratory failure, likely secondary to acute COPD exacerbation. At this time patient will mechanically ventilated on AC mode. We will continue DuoNeb breathing treatment, IV Solu-Medrol and empiric antibiotics. Patient's condition is guarded with a guarded prognosis. Will discuss with family. CODE STATUS full code. Past Med Surg Social Fam HX - Past Medical History Medical history: asthma, COPD Psychiatric history: anxiety - Past Surgical History Surgical History: other (Unknown at this time) - Social History Smoking Status: Current some day smoker Smokeless Tobacco Status: No Alcohol use: none Drug use: none Internal Medicine - H&P: Meds Albuterol Sulfate [Albuterol Inhaler] 2 puff IH Q4H PRN 09/03/17 [History] Amitriptyline [Elavil] 50 mg PO HS 09/03/17 [History] Budesonide/Formoterol 80/4.5 [Symbicort 80/4.5] 2 gm IH BIDR 09/03/17 [History] Citalopram Hydrobromide [Citalopram HBr] 20 mg PO DAILY 09/03/17 [History] Cyclobenzaprine [Flexeril] 10 mg PO TID PRN 09/03/17 [History] Famotidine [Pepcid] 40 mg PO DAILY 09/03/17 [History] Gabapentin [Neurontin] 300 mg PO QID 09/03/17 [History] Lisinopril/Hydrochlorothiazide [Zestoretic 20-25 mg Tablet] 1 tab PO DAILY 09/03 [History] Montelukast [Singulair] 10 mg PO DAILY 09/03/17 [History] Omeprazole [PriLOSEC] 20 mg PO DAILY 09/03/17 [History] Simvastatin [Zocor] 40 mg PO DAILY 09/03/17 [History] Sucralfate [Carafate] 1 gm PO QID 09/03/17 [History] levoFLOXacin [Levofloxacin] 500 mg PO DAILY 09/03/17 [History] 3 Allergy/AdvReac Type Severity Reaction Status Date / Time No Known Allergies Allergy Verified 09/03/17 15:55 ROS unobtainable: due to endotracheal tube All Systems PM: A 10-system review of systems was performed and is negative for pertinent findings except as documented above in the HPI. Review of systems: Unable to obtain history as patient is intubated, sedated and mechanically ventilated. - Constitutional Vitals: Temp Pulse Resp BP Pulse Ox 96.9 F L 88 26 122/58 100 09/03/17 20:00 09/03/17 20:00 09/03/17 20:06 09/03/17 20:06 09/03/17 20:06 Exam: Patient is intubated, sedated and mechanically ventilated. - Head Head exam: Present: atraumatic - Eye Eye exam: Present: sclera anicteric - ENT ENT exam: Present: mucous membranes dry Additional comments: ET tube in place - Neck Additional comments: Right IJ central catheter in place, site looks okay - Respiratory Additional comments: Good air entry bilaterally in upper lung sebastian. No wheezing or rhonchi appreciated. Slightly diminished breath sounds in both bases. - Cardiovascular Cardiovascular exam: Present: RRR, +S1, +S2. Absent: JVD - GI/Abdominal GI/Abdominal exam: Present: distended, soft, no peritoneal signs. Absent: firm , guarding - Extremities Exam Extremities exam: Present: radial pulses palpable and symmetrical. Absent: cyanotic, pedal edema - Neurological Exam Additional comments: Intubated, sedated and mechanically ventilated. Internal Med - H&P Results - Labs CBC & Chem 7: 09/03/17 16:12 09/03/17 16:12 - ABG Interpretation ABG results: 09/03/17 17:43 ABG pH 7.03 L* D ABG pCO2 62 H ABG pO2 96 ABG HCO3 16 L ABG Total CO2 18 L ABG O2 Saturation 92 L ABG Base Excess -15 L
[2017-09-03] MEDS ORDERED: FentaNYL (PF) 1,000 MCG in 0.9 % Sodium Chloride 80 ML IVC SCH (20:30)
[2017-09-03] MEDS ORDERED: cefTRIAXone 1,000 MG in Water for inj. (sterile) 20 ML IVP SCH (21:00)
[2017-09-03] MEDS: Pantoprazole 40 MG VIAL IVPB SCH (21:20)
[2017-09-03] MEDS: *HR* Heparin 5,000 UNIT/ML VIAL SQ SCH (21:20)
[2017-09-03] MEDS: Chlorhexidine Rinse 15 ML MOUTHWASH MM SCH (21:20)
[2017-09-03] MEDS: 0.9 % Sodium Chloride 1,000 ML IVC SCH (21:22)
[2017-09-03] MEDS: Budesonide/Formoterol 80/4.5 MDI IH SCH (21:47)
[2017-09-03 22:09] LABS: ABG Base Excess -5 mEq/L (-2 to 3); ABG HCO3 23 mEq/L (21-27); ABG Oxygen Saturation 100 % (95-98); ABG PCO2 52 mmHg (35-45); ABG PH 7.25 pH Units (7.32-7.45); ABG PO2 258 mmHg (85-104); ABG TCO2 24 mEq/L (20-26); Blood Gas Modality VC
[2017-09-03] MEDS: methylPREDNISolone 125 MG/2 ML VIAL IVP SCH (23:54)
[2017-09-03] MEDS: Lacri-Lube 3.5 GM TUBE BOTH EYES SCH (23:54)
[2017-09-03] MEDS: Insulin LISPRO 300 UNITS/3 ML VIAL SQ SCH (23:54)
[2017-09-04] MEDS: Norepinephrine 4 MG in D5% in Water 250 ML IVC SCH (00:52)
[2017-09-04] MEDS: Dexmedetomidine HCl 400 MCG/100 ML MLS IVC SCH (02:19)
[2017-09-04] MEDS: Lacri-Lube 3.5 GM TUBE BOTH EYES SCH ×3 (03:38→11:23)
[2017-09-04 03:44] LABS: Basophils % 0.1 %; Hematocrit 37.6 % (35.3-44.9); Hemoglobin 12.3 g/dL (11.5-15.4); Immature Granulocytes % 0.7 % (0-4); Lymphocytes # 0.4 K/mcL (0.6-4.6); Lymphocytes % 1.8 %; Mean Corpuscular HGB Conc 32.7 g/dL (31.6-35.5); Mean Corpuscular Volume 94.7 fL (83.0-100.0); Mean Platelet Volume 9.8 fL (9.4-12.4); Monocytes # 0.5 K/mcL (0.0-1.3); Monocytes % 2.5 %; Neutrophils # 18.4 K/mcL (1.6-8.9); Platelet Count 253 K/mcL (140-400); Red Blood Count 3.97 M/mcL (3.82-4.97); Segmented Neutrophils % 94.9 %
[2017-09-04 03:54] LABS: Calcium 7.6 mg/dL (8.6-10.8); Phosphorous 4.1 mg/dL (2.3-4.7); Potassium 3.5 mEq/L (3.5-4.5)
[2017-09-04] MEDS: Ipratropium/Albuterol Neb 3 ML IH SCH ×6 (03:55→23:15)
[2017-09-04 04:01] LABS: ABG Base Excess -7 mEq/L (-2 to 3); ABG HCO3 21 mEq/L (21-27); ABG Oxygen Saturation 89 % (95-98); ABG PCO2 47 mmHg (35-45); ABG PH 7.25 pH Units (7.32-7.45); ABG PO2 65 mmHg (85-104); ABG TCO2 22 mEq/L (20-26); Blood Gas Modality VC; Blood Gas PEEP 10 cm H2O; Blood Gas Respiration Rate 22; Blood Gas VT 320 cc
[2017-09-04] MEDS: Insulin LISPRO 300 UNITS/3 ML VIAL SQ SCH (05:20)
[2017-09-04] MEDS: *HR* Heparin 5,000 UNIT/ML VIAL SQ SCH ×2 (05:25→18:39)
[2017-09-04] MEDS: Budesonide/Formoterol 80/4.5 MDI IH SCH ×2 (07:32→19:30)
--- NOTE | 2017-09-04 07:53 | Pulmonology Consult Note ---
<ElinorparveenBlaise patel M - Last Filed: 09/04/17 08:41> Date of Encounter: 09/04/17 Medications and Allergies Albuterol Sulfate [Albuterol Inhaler] 2 puff IH Q4H PRN 09/03/17 [History] Amitriptyline [Elavil] 50 mg PO HS 09/03/17 [History] Budesonide/Formoterol 80/4.5 [Symbicort 80/4.5] 2 gm IH BIDR 09/03/17 [History] Citalopram Hydrobromide [Citalopram HBr] 20 mg PO DAILY 09/03/17 [History] Cyclobenzaprine [Flexeril] 10 mg PO TID PRN 09/03/17 [History] Famotidine [Pepcid] 40 mg PO DAILY 09/03/17 [History] Gabapentin [Neurontin] 300 mg PO QID 09/03/17 [History] Lisinopril/Hydrochlorothiazide [Zestoretic 20-25 mg Tablet] 1 tab PO DAILY 09/03 [History] Montelukast [Singulair] 10 mg PO DAILY 09/03/17 [History] Omeprazole [PriLOSEC] 20 mg PO DAILY 09/03/17 [History] Simvastatin [Zocor] 40 mg PO DAILY 09/03/17 [History] Sucralfate [Carafate] 1 gm PO QID 09/03/17 [History] levoFLOXacin [Levofloxacin] 500 mg PO DAILY 09/03/17 [History] 3 Allergy/AdvReac Type Severity Reaction Status Date / Time No Known Allergies Allergy Verified 09/03/17 15:55 All Systems: A 10-system review of systems was performed and is negative for pertinent findings except as documented above in the HPI. Physical Examination Vital Signs: Vital Signs, Last 4 Hours Temp Pulse Resp BP Pulse Ox 09/04/17 08:13 95 09/04/17 08:05 24 95 09/04/17 08:00 82 22 116/52 95 09/04/17 07:59 98.5 F 09/04/17 07:41 66 09/04/17 07:37 17 98 09/04/17 07:00 66 24 105/53 98 09/04/17 06:00 67 26 129/59 100 09/04/17 05:42 26 78/44 100 09/04/17 05:00 64 22 91/45 99 Ventilator Settings Ventilator Settings: Ventilator Settings, Last 8 Hours Ventilator Mode CPAP Ventilator Mode CPAP Ventilator Mode VC+ Ventilator Mode VC+ Ventilator Mode VC+ Ventilator Mode VC+ Ventilator Mode VC+ Ventilator Mode VC+ Ventilator Mode VC+ Ventilator Mode VC+ Ventilator Mode VC+ Ventilator Mode VC+ Ventilator Tidal Volume 320 Setting Ventilator Tidal Volume 320 Setting Ventilator Tidal Volume 320 Setting Ventilator Tidal Volume 320 Setting Ventilator Tidal Volume 320 Setting Ventilator Tidal Volume 320 Setting Ventilator Tidal Volume 320 Setting Ventilator Tidal Volume 320 Setting Ventilator Tidal Volume 320 Setting Ventilator Tidal Volume 320 Setting Ventilator Respiratory Rate 22 Setting Ventilator Respiratory Rate 22 Setting Ventilator Respiratory Rate 22 Setting Ventilator Respiratory Rate 22 Setting Ventilator Respiratory Rate 22 Setting Ventilator Respiratory Rate 22 Setting Ventilator Respiratory Rate 22 Setting Ventilator Respiratory Rate 22 Setting Ventilator Respiratory Rate 22 Setting Ventilator Respiratory Rate 22 Setting Actual Respiratory Rate 20 Actual Respiratory Rate 20 Actual Respiratory Rate 22 Actual Respiratory Rate 22 Actual Respiratory Rate 22 Actual Respiratory Rate 22 Actual Respiratory Rate 23 Actual Respiratory Rate 25 Actual Respiratory Rate 22 Actual Respiratory Rate 22 Actual Respiratory Rate 22 Positive End Expiratory 5 Pressure Positive End Expiratory 5 Pressure Positive End Expiratory 10 Pressure Positive End Expiratory 10 Pressure Positive End Expiratory 10 Pressure Positive End Expiratory 10 Pressure Positive End Expiratory 10 Pressure Positive End Expiratory 10 Pressure Positive End Expiratory 10 Pressure Positive End Expiratory 10 Pressure Positive End Expiratory 10 Pressure Positive End Expiratory 10 Pressure Peak Inspiratory Airway 11 Pressure Peak Inspiratory Airway 11 Pressure Peak Inspiratory Airway 28 Pressure Peak Inspiratory Airway 28 Pressure Peak Inspiratory Airway 26 Pressure Peak Inspiratory Airway 26 Pressure Peak Inspiratory Airway 26 Pressure Peak Inspiratory Airway 27 Pressure Peak Inspiratory Airway 27 Pressure Peak Inspiratory Airway 27 Pressure Peak Inspiratory Airway 27 Pressure Results - Laboratory Findings CBC and BMP: 09/04/17 03:30 09/04/17 03:30 ABG ABG pH 7.25 pH Units (7.32-7.45) L 09/04/17 03:56 ABG pCO2 47 mmHg (35-45) H 09/04/17 03:56 ABG pO2 65 mmHg (85-104) L D 09/04/17 03:56 ABG O2 Saturation 89 % (95-98) L 09/04/17 03:56 PT/INR, D-dimer PT 13.0 Seconds (9.4-12.1) H 09/03/17 16:12 Abnormal lab findings: Abnormal lab results WBC 19.4 K/mcL (4.3-11.1) H D 09/04/17 03:30 Neutrophils # 18.4 K/mcL (1.6-8.9) H 09/04/17 03:30 Lymphocytes # 0.4 K/mcL (0.6-4.6) L 09/04/17 03:30 PT 13.0 Seconds (9.4-12.1) H 09/03/17 16:12 ABG pH 7.25 pH Units (7.32-7.45) L 09/04/17 03:56 ABG pCO2 47 mmHg (35-45) H 09/04/17 03:56 ABG pO2 65 mmHg (85-104) L D 09/04/17 03:56 ABG O2 Saturation 89 % (95-98) L 09/04/17 03:56 ABG Base Excess -7 mEq/L (-2 to 3) L 09/04/17 03:56 Chloride 112 mEq/L (98-109) H 09/04/17 03:30 Carbon Dioxide 18 mEq/L (19-29) L 09/04/17 03:30 BUN 40 mg/dL (7-20) H 09/04/17 03:30 Creatinine 1.77 mg/dL (0.57-1.11) H 09/04/17 03:30 Est GFR ( Amer) 34 (> 60) L 09/04/17 03:30 Est GFR (Non-Af Amer) 28 (> 60) L 09/04/17 03:30 Glucose 136 mg/dL (70-99) H 09/04/17 03:30 POC Glucose 222 (58-89) H 09/03/17 23:20 Calculated Osmolality 304 (280-300) H 09/04/17 03:30 Calcium 7.6 mg/dL (8.6-10.8) L 09/04/17 03:30 Magnesium 1.5 mg/dL (1.6-2.6) L 09/04/17 03:30 Alkaline Phosphatase 127 Units/L (38-126) H 09/03/17 16:12 Serum Total Protein 5.5 g/dL (6.0-8.3) L 09/03/17 16:12 Albumin 2.7 g/dL (3.5-5.0) L 09/03/17 16:12 Albumin/Globulin Ratio 1.0 (1.1-2.2) L 09/03/17 16:12 Urine Clarity Cloudy (Clear) A 09/03/17 16:30 Urine Bilirubin Small (Negative) H 09/03/17 16:30 Urine Microscopic RBC 3-5 per hpf (0-3) H 09/03/17 16:30 Urine Microscopic WBC 3-5 per hpf (0-3) H 09/03/17 16:30 Ur Squamous Epith Cells Many per lpf (None-Few) H 09/03/17 16:30 Hyaline Casts Many per lpf (None-Few) H 09/03/17 16:30 - Clinical Findings Intake & Output: Intake & Output 09/03/17 09/04/17 09/04/17 23:59 07:59 15:59 Intake Total 54 / 2754 320 / 320 Output Total 300 / 300 475 / 475 Balance -246 / 2454 -155 / -155 Weight 56 kg 56 kg Consult Discharge Plan - Plan Referrals: Leodan Koch MD [Primary Care Provider] - - Attending Attestation I examined this patient and my medical decision-making was reviewed with the Resident Physician. I agree with the documented findings, disposition and treatment plan as described except to the extent set forth below. Patient seen and examined. Labs, radiology, chart personally reviewed. Agree with resident's history and physical, assessment, plan with following comments: SEARCH ENGINE MARKETING SPECIALIST: Patient sedated and does not follows commands, Pulmonary: In my opinion patient does not meet ARDS criteria and for that reason I made changes on the ventilator setting with lowering people and changing the minute ventilation. Subsequently patient was able to do spontaneous breathing trial and plan extubation and use noninvasive ventilation if needed. Patient will be treated as COPD exacerbation. Cardiovascular: stable GI: Nutrition per dietary and GI prophylaxis per routine Heme: DVT prophylaxis per routine ID: Continue antibiotics and plan to de-escalation Renal; urine out put and renal funtion reviewed Endorcine: blood glucose is monitored Lines: all lines checked and no evidence of infections Skin: skin care to prevent pressure ulcers per nursing routine care I spent 35 min of Critical Care time with this patient. It involved decision making of high complexity to assess, manipulate, and support vital organ system failure and/or to prevent further life threatening deterioration of the patient' s condition. The time involved in the performance of separately reportable procedures was not counted toward critical care time. <Maxi Garcia - Last Filed: 09/04/17 09:13> Date of Encounter: 09/04/17 Time of Encounter: 07:15 Assessment and Plan (1) Acute on chronic respiratory failure with hypoxia and hypercapnia Current Visit: Yes Status: Acute - Acute respiratory distress with noted hypoxia prior to arrival to ED and ABG showed pH 7.03, pCO2 62, pO2 96, HCO3 16. - Likely secondary to AE COPD. Doubt pneumonia given unremarkable CXR. - Will check respiratory infection panel and consider Tamiflu if positive for influenza. - Continue Solu-Medrol, ceftriaxone, Symbicort and Duoneb for AE COPD. - Intubated and on ventilation support overnight but tolerated spontaneous breathing trial well this morning. Plan to extubate and use non-invasive ventilation support as needed. - Continue close monitoring. (2) COPD exacerbation Current Visit: Yes Status: Acute - Continue Solu-Medrol, ceftriaxone, Symbicort and Duoneb. (3) LONNY (acute kidney injury) Current Visit: Yes Status: Acute - SCr 2.12 / eGFR 23 on admission compared to baseline SCr 0.99 / eGFR 55. - Likely pre-renal given significant hypotension on admission. - Improves as SCr 1.77 / eGFR 28 today. - Continue hydration with IV fluid. - Avoid nephrotoxin. - Closely monitor renal function and electrolytes. (4) Hypotension Current Visit: Yes Status: Acute - BP as low as 50/33 in ED. - Likely related to current respiratory failure. - Currently on IV NS and norepinephrine. - Improves as BP 129/58 this morning. Will attempt to wean off from norepinephrine. - Hold home dose antihypertensive medication at this time. Qualifiers: Hypotension type: unspecified hypotension type Qualified Code(s): I95.9 - Hypotension, unspecified (5) Depression Current Visit: Yes Status: Chronic - On amitriptyline and citalopram at home. Hold for now given their potential interaction with norepinephrine but plan to resume once patient is weaned off from norepinephrine. Qualifiers: Depression Type: unspecified Qualified Code(s): F32.9 - Major depressive disorder, single episode, unspecified (6) DVT prophylaxis Current Visit: Yes Status: Acute - Continue SQ heparin. History of Present Illness Consult date: 09/04/17 Requesting physician: Grady Simmons Reason for consult: dyspnea (Acute on chronic respiratory failure with hypoxia and hypercapnia requiring intubation and ventilation management) Chief complaint: Shortness of breath History of present illness: Ms. Green is a 72 yo female with PMH of COPD, HTN, GERD, Baretts esophagus and depression who presented to [place] ED for acute respiratory distress. Patient was noted to have O2 sat 58% on the scene per EMS. Patient was noted to be somnolent and hypotensive (as low as 50/33) in ED and ABG showed pH 7.03, pCO2 62, pO2 96, HCO3 16. Patient was intubated after failing BiPAP in ED and right IJ central line was placed for blood pressure support. CXR did not suggest pneumonia. Patient was also noted to have SCr 2.12 suggestive of LONNY. Patient was started on Solu-Medrol, antibiotic, Symbicort, Duoneb and IV NS. Patient was admitted on 09/03/17 to ICU for acute on chronic respiratory failure with hypoxia and hypercapnia and critical care/pulmonology was consulted for further management. Patient was seen and examined this morning. Patient is still intubated but alert and able to follow some simple command on the encounter. Given patient is still intubated, much of history was obtained from reviewing [facility] and [facility]. Past Med Surg Social Fam HX - Past Medical History Medical history: asthma, COPD, diabetes, hypertension Psychiatric history: anxiety, depression - Past Surgical History Surgical History: herniorrhaphy (Robotic-assisted laparoscopic repair of giant hiatal hernia withToupet fundoplication. 05/2014), knee replacement (Right total knee replacement 01/2014), orthopedic, other (Right knee arthroscopic debridement 08/2014) - Social History Smoking Status: Current some day smoker Smokeless Tobacco Status: No Alcohol use: none Drug use: none - Family History Father Living Status: Hx Family Cardiac Disorders: Yes (heart disease) Hx Family Endocrine Disorder: Yes (DM) Mother Living Status: Hx Family Cardiac Disorders: Yes (heart disease) Hx Family Endocrine Disorder: Yes (DM) Hx Family Neurologic Disorders: Yes (CVA) ROS unobtainable: due to endotracheal tube Physical Examination Vital Signs: Vital Signs, Last 4 Hours Temp Pulse Resp BP Pulse Ox 09/04/17 07:41 66 09/04/17 07:37 17 98 09/04/17 07:00 66 24 105/53 98 09/04/17 06:00 67 26 129/59 100 09/04/17 05:42 26 78/44 100 09/04/17 05:00 64 22 91/45 99 09/04/17 04:00 97.4 F L 64 22 87/43 99 09/04/17 03:55 23 91/47 96 General appearance: alert, other (Intubated) Eyes: nonicteric Neck: supple Effort: normal Inspection: normal Auscultation: bilateral: diminished breath sounds Cardiovascular: regular rate and rhythm Gastrointestinal: normoactive bowel sounds, soft, non-tender, non-distended Integumentary: normal Extremities: no cyanosis, no edema, pulses normal Musculoskeletal: no deformities normal mental status, non-focal exam Ventilator Settings Ventilator Settings: Ventilator Settings, Last 8 Hours Ventilator Mode CPAP Ventilator Mode CPAP Ventilator Mode VC+ Ventilator Mode VC+ Ventilator Mode VC+ Ventilator Mode VC+ Ventilator Mode VC+ Ventilator Mode VC+ Ventilator Mode VC+ Ventilator Mode VC+ Ventilator Mode VC+ Ventilator Mode VC+ Ventilator Mode VC+ Ventilator Tidal Volume 320 Setting Ventilator Tidal Volume 320 Setting Ventilator Tidal Volume 320 Setting Ventilator Tidal Volume 320 Setting Ventilator Tidal Volume 320 Setting Ventilator Tidal Volume 320 Setting Ventilator Tidal Volume 320 Setting Ventilator Tidal Volume 320 Setting Ventilator Tidal Volume 320 Setting Ventilator Tidal Volume 320 Setting Ventilator Tidal Volume 320 Setting Ventilator Respiratory Rate 22 Setting Ventilator Respiratory Rate 22 Setting Ventilator Respiratory Rate 22 Setting Ventilator Respiratory Rate 22 Setting Ventilator Respiratory Rate 22 Setting Ventilator Respiratory Rate 22 Setting Ventilator Respiratory Rate 22 Setting Ventilator Respiratory Rate 22 Setting Ventilator Respiratory Rate 22 Setting Ventilator Respiratory Rate 22 Setting Ventilator Respiratory Rate 22 Setting Actual Respiratory Rate 20 Actual Respiratory Rate 20 Actual Respiratory Rate 22 Actual Respiratory Rate 22 Actual Respiratory Rate 22 Actual Respiratory Rate 22 Actual Respiratory Rate 23 Actual Respiratory Rate 25 Actual Respiratory Rate 22 Actual Respiratory Rate 22 Actual Respiratory Rate 22 Actual Respiratory Rate 22 Positive End Expiratory 5 Pressure Positive End Expiratory 5 Pressure Positive End Expiratory 10 Pressure Positive End Expiratory 10 Pressure Positive End Expiratory 10 Pressure Positive End Expiratory 10 Pressure Positive End Expiratory 10 Pressure Positive End Expiratory 10 Pressure Positive End Expiratory 10 Pressure Positive End Expiratory 10 Pressure Positive End Expiratory 10 Pressure Positive End Expiratory 10 Pressure Positive End Expiratory 10 Pressure Peak Inspiratory Airway 11 Pressure Peak Inspiratory Airway 11 Pressure Peak Inspiratory Airway 28 Pressure Peak Inspiratory Airway 28 Pressure Peak Inspiratory Airway 26 Pressure Peak Inspiratory Airway 26 Pressure Peak Inspiratory Airway 26 Pressure Peak Inspiratory Airway 27 Pressure Peak Inspiratory Airway 27 Pressure Peak Inspiratory Airway 27 Pressure Peak Inspiratory Airway 27 Pressure Peak Inspiratory Airway 27 Pressure Results - Laboratory Findings CBC and BMP: 09/04/17 03:30 09/04/17 03:30 ABG ABG pH 7.25 pH Units (7.32-7.45) L 09/04/17 03:56 ABG pCO2 47 mmHg (35-45) H 09/04/17 03:56 ABG pO2 65 mmHg (85-104) L D 09/04/17 03:56 ABG O2 Saturation 89 % (95-98) L 09/04/17 03:56 PT/INR, D-dimer PT 13.0 Seconds (9.4-12.1) H 09/03/17 16:12 Abnormal lab findings: Abnormal lab results WBC 19.4 K/mcL (4.3-11.1) H D 09/04/17 03:30 Neutrophils # 18.4 K/mcL (1.6-8.9) H 09/04/17 03:30 Lymphocytes # 0.4 K/mcL (0.6-4.6) L 09/04/17 03:30 PT 13.0 Seconds (9.4-12.1) H 09/03/17 16:12 ABG pH 7.25 pH Units (7.32-7.45) L 09/04/17 03:56 ABG pCO2 47 mmHg (35-45) H 09/04/17 03:56 ABG pO2 65 mmHg (85-104) L D 09/04/17 03:56 ABG O2 Saturation 89 % (95-98) L 09/04/17 03:56 ABG Base Excess -7 mEq/L (-2 to 3) L 09/04/17 03:56 Chloride 112 mEq/L (98-109) H 09/04/17 03:30 Carbon Dioxide 18 mEq/L (19-29) L 09/04/17 03:30 BUN 40 mg/dL (7-20) H 09/04/17 03:30 Creatinine 1.77 mg/dL (0.57-1.11) H 09/04/17 03:30 Est GFR ( Amer) 34 (> 60) L 09/04/17 03:30 Est GFR (Non-Af Amer) 28 (> 60) L 09/04/17 03:30 Glucose 136 mg/dL (70-99) H 09/04/17 03:30 POC Glucose 222 (58-89) H 09/03/17 23:20 Calculated Osmolality 304 (280-300) H 09/04/17 03:30 Calcium 7.6 mg/dL (8.6-10.8) L 09/04/17 03:30 Magnesium 1.5 mg/dL (1.6-2.6) L 09/04/17 03:30 Alkaline Phosphatase 127 Units/L (38-126) H 09/03/17 16:12 Serum Total Protein 5.5 g/dL (6.0-8.3) L 09/03/17 16:12 Albumin 2.7 g/dL (3.5-5.0) L 09/03/17 16:12 Albumin/Globulin Ratio 1.0 (1.1-2.2) L 09/03/17 16:12 Urine Clarity Cloudy (Clear) A 09/03/17 16:30 Urine Bilirubin Small (Negative) H 09/03/17 16:30 Urine Microscopic RBC 3-5 per hpf (0-3) H 09/03/17 16:30 Urine Microscopic WBC 3-5 per hpf (0-3) H 09/03/17 16:30 Ur Squamous Epith Cells Many per lpf (None-Few) H 09/03/17 16:30 Hyaline Casts Many per lpf (None-Few) H 09/03/17 16:30 - Diagnostic Findings Chest x-ray: report reviewed, image reviewed - Clinical Findings Intake & Output: Intake & Output 09/03/17 09/03/17 09/04/17 15:59 23:59 07:59 Intake Total 54 / 2754 320 / 320 Output Total 300 / 300 300 / 300 Balance -246 / 2454 Weight 56 kg 56 kg
[2017-09-04] MEDS: Pantoprazole 40 MG VIAL IVPB SCH (08:37)
[2017-09-04] MEDS: methylPREDNISolone 125 MG/2 ML VIAL IVP SCH ×3 (08:37→23:56)
[2017-09-04] MEDS: Chlorhexidine Rinse 15 ML MOUTHWASH MM SCH ×2 (08:37→21:05)
[2017-09-04] MEDS: Sucralfate 1 GM TABLET PO SCH ×4 (09:36→21:05)
[2017-09-04] MEDS: 0.9 % Sodium Chloride 1,000 ML IVC SCH ×2 (09:51→21:38)
[2017-09-04 11:13] LABS: Adenovirus Not Detected (Not Detect); Bordetella Pertussis Not Detected (Not Detect); Chlamydophila pneumoniae Not Detected (Not Detect); Coronavirus 229E Not Detected (Not Detect); Coronavirus HKU1 Not Detected (Not Detect); Coronavirus NL63 Not Detected (Not Detect); Coronavirus OC43 Not Detected (Not Detect); Human Metapneumovirus Not Detected (Not Detect); Human Rhinovirus/Enterovirus ***DETECTED*** (Not Detect); Influenza A Subtype 2009 H1 Not Detected (Not Detect); Influenza A Untypeable Not Detected (Not Detect); Influenza B Not Detected (Not Detect); Mycoplasma pneumoniae Not Detected (Not Detect); Parainfluenza Virus 1 Not Detected (Not Detect); Parainfluenza Virus 2 Not Detected (Not Detect); Parainfluenza Virus 3 Not Detected (Not Detect); Parainfluenza Virus 4 Not Detected (Not Detect); Respiratory Syncytial Virus Not Detected (Not Detect)
[2017-09-04] MEDS ORDERED: *HR* LORazepam 2 MG/ML VIAL IVP ONE (12:09)
[2017-09-04] MEDS ORDERED: *HR* Dextrose 50 % in Water (Syg) 50 ML SYRINGE IVP PRN (13:09)
[2017-09-04] MEDS ORDERED: Dextrose Gel 15 GM PO PRN ×2 (13:09)
[2017-09-04] MEDS ORDERED: D5% in Water 1,000 ML IVC PRN (13:09)
[2017-09-04] MEDS ORDERED: Naloxone 0.4 MG/ML INJ IVP PRN (13:09)
--- NOTE | 2017-09-04 14:12 | Electrocardiograph Report ---
[place] [id number] Test Date: 2017-09-03 Pat Name: Paola Green Department: 104 Room: [facility] Gender: F Lactation Specialist: : [id number] Requested By: Roby Najera Order Number: [id number] Reading MD: Jaden Storm DO Measurements Intervals [place] Rate: 91 P: 61 KS: 197 QRS: 11 QRSD: 100 T: 34 QT: 400 QTc: 449 Interpretive Statements SINUS RHYTHM Electronically Signed On 09-04-2017 14:10:53 EST by Jaden Storm DO
[2017-09-04] MEDS: cefTRIAXone 1,000 MG in Water for inj. (sterile) 20 ML IVP SCH (21:05)
[2017-09-04] MEDS: Acetaminophen 325 MG TABLET PO PRN (23:56)
[2017-09-05] MEDS: *HR* Heparin 5,000 UNIT/ML VIAL SQ SCH ×2 (04:59→17:27)
[2017-09-05] MEDS: Ipratropium/Albuterol Neb 3 ML IH SCH ×6 (05:13→23:25)
[2017-09-05 06:35] LABS: Basophils % 0.1 %; Hematocrit 36.3 % (35.3-44.9); Hemoglobin 12.1 g/dL (11.5-15.4); Immature Granulocytes % 0.3 % (0-4); Lymphocytes # 0.4 K/mcL (0.6-4.6); Lymphocytes % 2.6 %; Mean Corpuscular HGB Conc 33.3 g/dL (31.6-35.5); Mean Corpuscular Hemoglobin 30.3 pg (28.0-33.3); Mean Platelet Volume 9.9 fL (9.4-12.4); Monocytes # 0.7 K/mcL (0.0-1.3); Monocytes % 4.2 %; Neutrophils # 14.7 K/mcL (1.6-8.9); Platelet Count 211 K/mcL (140-400); Red Blood Count 3.99 M/mcL (3.82-4.97); Red Cell Distribution Width 13.9 % (11.5-14.5); Segmented Neutrophils % 92.8 %
[2017-09-05 06:53] LABS: Calcium 8.1 mg/dL (8.6-10.8); Potassium 2.8 mEq/L (3.5-4.5)
[2017-09-05] MEDS: Sucralfate 1 GM TABLET PO SCH ×4 (07:51→21:14)
[2017-09-05] MEDS: methylPREDNISolone 125 MG/2 ML VIAL IVP SCH ×2 (07:52→17:02)
[2017-09-05] MEDS: Pantoprazole 40 MG VIAL IVPB SCH (07:52)
[2017-09-05] MEDS: Chlorhexidine Rinse 15 ML MOUTHWASH MM SCH ×2 (07:53→21:11)
[2017-09-05] MEDS: Budesonide/Formoterol 80/4.5 MDI IH SCH ×2 (08:15→19:50)
[2017-09-05] MEDS: 0.9 % Sodium Chloride 1,000 ML IVC SCH (13:54)
[2017-09-05] MEDS: Acetaminophen 325 MG TABLET PO PRN (14:03)
--- NOTE | 2017-09-05 18:24 | Internal Med Progress Note ---
Date of Encounter: 09/05/17 Time of Encounter: 18:17 - Assessment and plan (1) COPD exacerbation Current Visit: Yes Status: Acute Assessment and plan: Improving was IV steroids and antibiotics (2) Hypotension Current Visit: Yes Status: Acute Assessment and plan: improved IV fluids Qualifiers: Hypotension type: unspecified hypotension type Qualified Code(s): I95.9 - Hypotension, unspecified (3) LONNY (acute kidney injury) Current Visit: Yes Status: Acute Assessment and plan: Improved and was IV fluids, hypokalemia we will replace was IV and oral (4) Acute on chronic respiratory failure with hypoxia and hypercapnia Current Visit: Yes Status: Acute Assessment and plan: Pulmonary was consulted, continue IV steroids and antibiotics she feels much better on 2 L nasal cannula. - Time Spent With Patient 25 - 35 minutes - Subjective Interval history: Patient has history of COPD on 2 L nasal cannula at home, she was admitted for COPD exacerbation. She feels a better but still have a dry cough. Still shortness of breasts was mild exertion. Chest has diminished breathing sounds - Constitutional Vitals: Temp Pulse Resp BP Pulse Ox 98.1 F 94 24 155/73 94 09/05/17 15:34 09/05/17 15:34 09/05/17 16:15 09/05/17 15:34 09/05/17 16:15 CONSTITUTIONAL: patient appears as an age appropriate female in no acute distress. EYES Clear sclerae, bilateral pupils are equal, reactive to light. EMOI. RESPIRATORY: No accessory muscle use, bilateral clear to auscultation, no wheezing, no crackles/rales. CARDIOVASCULAR: Regular heart rate, normal S1 and S2, no murmurs GASTROINTESTINAL: bowel sounds present, soft, no tenderness. MUSCULOSKELETAL: Joints in normal range of motion, no clubbing, no edema, no cyanosis. Bilateral peripheral pulses 2+. NEUROLOGIC: CN II to XII are grossly intact, no focal neurological deficit. Internal Medicine: Result - Labs CBC & Chem 7: 09/05/17 06:23 09/05/17 06:23 Labs: Short CBC 09/05/17 Range/Units 06:23 WBC 15.9 H (4.3-11.1) K/mcL Hgb 12.1 (11.5-15.4) g/dL Hct 36.3 (35.3-44.9) % Plt Count 211 (140-400) K/mcL Neutrophils # 14.7 H (1.6-8.9) K/mcL BMP 09/05/17 06:23 Sodium 143 Potassium 2.8 L Chloride 113 H Carbon Dioxide 21 BUN 38 H Creatinine 1.11 Glucose 121 H Calcium 8.1 L - ABG Interpretation ABG results: ABG ABG pH 7.25 pH Units (7.32-7.45) L 09/04/17 03:56 ABG pCO2 47 mmHg (35-45) H 09/04/17 03:56 ABG pO2 65 mmHg (85-104) L D 09/04/17 03:56 ABG O2 Saturation 89 % (95-98) L 09/04/17 03:56 PT/INR, D-dimer PT 13.0 Seconds (9.4-12.1) H 09/03/17 16:12 Consult Discharge Plan - Plan Referrals: Leodan Koch MD [Primary Care Provider] -
[2017-09-05] MEDS ORDERED: Acetaminophen 325 MG TABLET PO PRN (19:52)
[2017-09-05] MEDS: Potassium Chloride Elixir 20 MEQ/15 ML UDC PO SCH (21:11)
[2017-09-05] MEDS: cefTRIAXone 1,000 MG in Water for inj. (sterile) 20 ML IVP SCH (21:14)
[2017-09-05] MEDS: Famotidine 20 MG TABLET PO SCH (21:14)
[2017-09-06] MEDS: methylPREDNISolone 125 MG/2 ML VIAL IVP SCH ×3 (00:28→17:49)
[2017-09-06] MEDS: 0.9 % Sodium Chloride 1,000 ML IVC SCH ×2 (03:05→20:56)
[2017-09-06] MEDS: Ipratropium/Albuterol Neb 3 ML IH SCH ×7 (04:33→23:51)
[2017-09-06] MEDS: *HR* Heparin 5,000 UNIT/ML VIAL SQ SCH ×2 (06:17→17:50)
[2017-09-06 06:44] LABS: BUN/Creatinine Ratio 33 (6-26); Blood Urea Nitrogen 33 mg/dL (7-20); Calcium 8.3 mg/dL (8.6-10.8); Carbon Dioxide 19 mEq/L (19-29); Chloride 115 mEq/L (98-109); Glucose 116 mg/dL (70-99); Magnesium 1.8 mg/dL (1.6-2.6); Osmolality,Calculated 306 (280-300); Potassium 3.6 mEq/L (3.5-4.5); Sodium 144 mEq/L (136-145); eGFR For African Americans > 60 (> 60); eGFR For Non-African Americans 54 (> 60)
[2017-09-06] MEDS: Sucralfate 1 GM TABLET PO SCH ×4 (07:42→21:42)
[2017-09-06] MEDS: Potassium Chloride Elixir 20 MEQ/15 ML UDC PO SCH ×2 (07:42→20:02)
[2017-09-06] MEDS: Chlorhexidine Rinse 15 ML MOUTHWASH MM SCH ×2 (07:42→20:05)
[2017-09-06] MEDS: Famotidine 20 MG TABLET PO SCH ×2 (07:42→20:04)
[2017-09-06] MEDS: Pantoprazole 40 MG VIAL IVPB SCH (07:43)
[2017-09-06] MEDS: Budesonide/Formoterol 80/4.5 MDI IH SCH ×2 (08:21→20:22)
--- NOTE | 2017-09-06 09:43 | Internal Med Progress Note ---
Date of Encounter: 09/06/17 Time of Encounter: 09:40 - Assessment and plan (1) COPD exacerbation Current Visit: Yes Status: Acute Assessment and plan: Patient has history of COPD on 2 L nasal cannula at home, she was admitted for COPD exacerbation. Patient developed sudden onset shortness of breath this morning desats on 2 L nasal cannula, 85% sats. She is a very shortness of breasts, has bilateral crackles. I ordered a stat chest x-ray which showed bilateral interstitial up up [place] city as well as small left pleural effusion finding pneumonia or pulmonary edema. We will transfer patient to stepdown, change antibiotic to Zosyn to cover pseudomonal pneumonia. Her kidney function improved, was started IV Lasix. Placed on BiPAP (2) Hypotension Current Visit: Yes Status: Acute Assessment and plan: improved IV fluids Qualifiers: Hypotension type: unspecified hypotension type Qualified Code(s): I95.9 - Hypotension, unspecified (3) LONNY (acute kidney injury) Current Visit: Yes Status: Acute Assessment and plan: Improved and was IV fluids, hypokalemia resolved (4) Acute on chronic respiratory failure with hypoxia and hypercapnia Current Visit: Yes Status: Acute Assessment and plan: Pulmonary was consulted, patient developed sudden onset of shortness of breasts was bilateral crackles and chest x-ray shows pneumonia and pulmonary edema. We will continue BiPAP transferred to stepdown, change antibiotics to Zosyn to cover pseudomonal pneumonia. (5) Pneumonia Current Visit: Yes Status: Acute Assessment and plan: Hospital-acquired pseudomonal pneumonia. Patient developed sudden onset shortness of breasts, bilateral crackles, chest x-ray shows worsening pneumonia , sputum culture positive for Pseudomonas. Likely hospital-acquired pneumonia. We will change IV ceftriaxone to Zosyn. Qualifiers: Pneumonia type: due to Pseudomonas Laterality: bilateral Lung location: unspecified part of lung Qualified Code(s): J15.1 - Pneumonia due to Pseudomonas - Time Spent With Patient Greater than 35 minutes - Subjective Interval history: Patient has history of COPD on 2 L nasal cannula at home, she was admitted for COPD exacerbation. Patient developed sudden onset shortness of breath this morning desats on 2 L nasal cannula, 85% sats. She is a very shortness of breasts, has bilateral crackles. I ordered a stat chest x-ray which showed bilateral interstitial up up a city as well as small left pleural effusion finding pneumonia or pulmonary edema. We will transfer patient to stepdown, change antibiotic to Zosyn to cover pseudomonal pneumonia. Her kidney function improved, was started IV Lasix. Placed on BiPAP - Constitutional Vitals: Temp Pulse Resp BP Pulse Ox 97.8 F 109 17 159/88 93 09/06/17 09:35 09/06/17 09:35 09/06/17 09:35 09/06/17 09:35 09/06/17 09:35 CONSTITUTIONAL: patient appears as an age appropriate female in no acute distress. EYES Clear sclerae, bilateral pupils are equal, reactive to light. EMOI. RESPIRATORY: No accessory muscle use, bilateral wheezing and crackles/rales. CARDIOVASCULAR: Regular heart rate, normal S1 and S2, no murmurs GASTROINTESTINAL: bowel sounds present, soft, no tenderness. MUSCULOSKELETAL: Joints in normal range of motion, no clubbing, no edema, no cyanosis. Bilateral peripheral pulses 2+. NEUROLOGIC: CN II to XII are grossly intact, no focal neurological deficit. Internal Medicine: Result - Labs CBC & Chem 7: 09/05/17 06:23 09/06/17 05:59 Labs: BMP 09/06/17 05:59 Sodium 144 Potassium 3.6 Chloride 115 H Carbon Dioxide 19 BUN 33 H Creatinine 1.01 Glucose 116 H Calcium 8.3 L - ABG Interpretation ABG results: ABG ABG pH 7.25 pH Units (7.32-7.45) L 09/04/17 03:56 ABG pCO2 47 mmHg (35-45) H 09/04/17 03:56 ABG pO2 65 mmHg (85-104) L D 09/04/17 03:56 ABG O2 Saturation 89 % (95-98) L 09/04/17 03:56 PT/INR, D-dimer PT 13.0 Seconds (9.4-12.1) H 09/03/17 16:12 - Impressions Impressions Chest X-Ray 09/06/17 08:21 IMPRESSION: Interval removal of right central venous catheter and endotracheal tubes. Increasing bilateral interstitial opacities as well as small left pleural effusion. Findings either reflect pneumonia or edema. D/ / 09/06/2017 09:02:05 Shelly García MD / geraldo Interpreting Provider: Shelly García MD Consult Discharge Plan - Plan Referrals: Leodan Koch MD [Primary Care Provider] -
[2017-09-06 09:51] LABS: Hematocrit 39.5 % (35.3-44.9); Hemoglobin 13.1 g/dL (11.5-15.4); Mean Corpuscular HGB Conc 33.2 g/dL (31.6-35.5); Mean Corpuscular Volume 90.6 fL (83.0-100.0); Mean Platelet Volume 10.3 fL (9.4-12.4); Platelet Count 319 K/mcL (140-400); Red Blood Count 4.36 M/mcL (3.82-4.97); Red Cell Distribution Width 14.2 % (11.5-14.5)
[2017-09-06] MEDS ORDERED: *HR* LORazepam 2 MG/ML VIAL IVP ONE (10:33)
[2017-09-06] MEDS: Piperacillin/Tazobactam 3.375 GM in 0.9 % Sodium Chloride Mini Bag 100 ML IVPB SCH ×2 (10:40→20:05)
[2017-09-06] MEDS: Furosemide 20 MG/2 ML VIAL IVP SCH ×2 (10:52→17:50)
[2017-09-06 11:20] LABS: Lymphocytes # 1.4 K/mcL (0.6-4.6); Neutrophils # 22.3 K/mcL (1.6-8.9)
[2017-09-06 11:21] LABS: Reactive Lymphocytes Present (Not Present)
[2017-09-06 11:22] LABS: Platelet Estimate Normal (Normal)
[2017-09-07] MEDS: methylPREDNISolone 125 MG/2 ML VIAL IVP SCH ×2 (00:30→08:09)
[2017-09-07] MEDS: Piperacillin/Tazobactam 3.375 GM in 0.9 % Sodium Chloride Mini Bag 100 ML IVPB SCH ×2 (01:26→10:20)
[2017-09-07] MEDS: Ipratropium/Albuterol Neb 3 ML IH SCH ×5 (03:54→20:54)
[2017-09-07 05:12] LABS: Basophils % 0.1 %; Hematocrit 38.7 % (35.3-44.9); Hemoglobin 12.9 g/dL (11.5-15.4); Immature Granulocytes % 1.6 % (0-4); Lymphocytes # 0.4 K/mcL (0.6-4.6); Lymphocytes % 2.4 %; Mean Corpuscular HGB Conc 33.3 g/dL (31.6-35.5); Mean Corpuscular Hemoglobin 30.1 pg (28.0-33.3); Mean Corpuscular Volume 90.4 fL (83.0-100.0); Mean Platelet Volume 10.2 fL (9.4-12.4); Monocytes # 0.6 K/mcL (0.0-1.3); Monocytes % 3.5 %; Neutrophils # 15.2 K/mcL (1.6-8.9); Platelet Count 243 K/mcL (140-400); Red Blood Count 4.28 M/mcL (3.82-4.97); Red Cell Distribution Width 14.2 % (11.5-14.5); Segmented Neutrophils % 92.4 %
[2017-09-07] MEDS: Sucralfate 1 GM TABLET PO SCH ×4 (05:17→21:17)
[2017-09-07] MEDS: *HR* Heparin 5,000 UNIT/ML VIAL SQ SCH ×2 (05:17→17:22)
[2017-09-07 05:30] LABS: BUN/Creatinine Ratio 30 (6-26); Blood Urea Nitrogen 32 mg/dL (7-20); Calcium 8.6 mg/dL (8.6-10.8); Carbon Dioxide 25 mEq/L (19-29); Chloride 109 mEq/L (98-109); Glucose 141 mg/dL (70-99); Magnesium 1.7 mg/dL (1.6-2.6); Osmolality,Calculated 305 (280-300); Potassium 3.6 mEq/L (3.5-4.5); Sodium 143 mEq/L (136-145); eGFR For African Americans > 60 (> 60); eGFR For Non-African Americans 51 (> 60)
[2017-09-07] MEDS: Budesonide/Formoterol 80/4.5 MDI IH SCH ×2 (07:33→20:54)
[2017-09-07] MEDS: Famotidine 20 MG TABLET PO SCH (08:09)
[2017-09-07] MEDS: Chlorhexidine Rinse 15 ML MOUTHWASH MM SCH (08:09)
[2017-09-07] MEDS: Pantoprazole 40 MG VIAL IVPB SCH (08:09)
[2017-09-07] MEDS: Furosemide 20 MG/2 ML VIAL IVP SCH ×2 (08:09→20:05)
[2017-09-07] MEDS: Potassium Chloride Elixir 20 MEQ/15 ML UDC PO SCH ×2 (08:10→20:04)
--- NOTE | 2017-09-07 11:41 | Internal Med Progress Note ---
<Jens Traylor - Last Filed: 09/07/17 11:39> Date of Encounter: 09/07/17 Time of Encounter: 08:30 - Assessment and plan (1) Pneumonia Current Visit: Yes Status: Acute Assessment and plan: Hospital-acquired pseudomonal pneumonia. Patient developed sudden onset shortness of breasts, bilateral crackles, chest x-ray shows worsening pneumonia , sputum culture positive for Pseudomonas. Likely hospital-acquired pneumonia. - Continue Zosyn antibiotic coverage. Patient improving. Qualifiers: Pneumonia type: due to Pseudomonas Laterality: bilateral Lung location: unspecified part of lung Qualified Code(s): J15.1 - Pneumonia due to Pseudomonas (2) Acute on chronic respiratory failure with hypoxia and hypercapnia Current Visit: Yes Status: Acute Assessment and plan: Patient recently extubated secondary to COPD exacerbation, demonstrated worsening respiratory status requiring BiPAP and consolidations on chest x-ray concerning for pneumonia. Sputum cultures grew Pseudomonas. - After antibiotics patient clinically improving, vitals stable, oxygen weaning appropriately - Continue current therapy including IV antibiotics, breathing treatments and weaning oxygen as tolerated. (3) COPD exacerbation Current Visit: Yes Status: Acute Assessment and plan: Patient has history of COPD on 2 L nasal cannula at home, she was admitted for COPD exacerbation. Patient developed sudden onset shortness of breath this morning desats on 2 L nasal cannula, 85% sats. She is a very shortness of breasts, had bilateral crackles yesterday and [facility] Chest x-ray concerning for pneumonia. Microbiology demonstrates pseudomonas. - Patient was placed on Zosyn for antibiotic coverage and weaned off BiPAP currently on 4.0 L nasal cannula oxygen with oxygen saturations greater than 90% . - Clinical improvement apparent. Plan: - Continue IV antibiotic coverage for pseudomonal pneumonia - Continue breathing treatments - Wean oxygen as tolerated. (4) Hypotension Current Visit: Yes Status: Acute Assessment and plan: Blood pressure currently stable. Hypotension likely secondary to sepsis. Patient improved after IV antibiotics and IV fluids. - Continue to monitor blood pressure. Qualifiers: Hypotension type: unspecified hypotension type Qualified Code(s): I95.9 - Hypotension, unspecified (5) DVT prophylaxis Current Visit: Yes Status: Acute - Subjective Interval history: Mrs. Roberts 72-year-old female seen in evaluation the patient bedside. She states she is feeling much better and back to her normal self and would like to be discharged home. She misses her dog at home and would like to be discharged so that she can be with him. She states that her breathing is much improved compared to yesterday and that the antibiotics are effective. She states that she had a history of having a reaction to penicillins but has not had any reaction to the Zosyn since she was placed on it. She denies any chest discomfort, shortness of breath but does have productive sputum and green in color with her normal sputum production is white. He requires increased oxygen demand but says she wears oxygen at home. She denies any nausea vomiting diarrhea constipation. 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 - Cardiovascular Cardiovascular exam: Present: irregular rhythm - GI/Abdominal GI/Abdominal exam: Present: normal bowel sounds, soft - Extremities Exam Extremities exam: Present: normal inspection, radial pulses palpable and symmetrical - Neurological Exam Neurological exam: Present: alert, oriented X3 - Psychiatric Psychiatric exam: Present: normal affect, normal mood - Skin Skin exam: Present: dry Internal Medicine: Result - Labs CBC & Chem 7: 09/07/17 04:17 09/07/17 04:17 Labs: Short CBC 09/07/17 Range/Units 04:17 WBC 16.5 H (4.3-11.1) K/mcL Hgb 12.9 (11.5-15.4) g/dL Hct 38.7 (35.3-44.9) % Plt Count 243 (140-400) K/mcL Neutrophils # 15.2 H (1.6-8.9) K/mcL BMP 09/07/17 04:17 Sodium 143 Potassium 3.6 Chloride 109 Carbon Dioxide 25 BUN 32 H Creatinine 1.06 Glucose 141 H Calcium 8.6 - ABG Interpretation ABG results: ABG ABG pH 7.25 pH Units (7.32-7.45) L 09/04/17 03:56 ABG pCO2 47 mmHg (35-45) H 09/04/17 03:56 ABG pO2 65 mmHg (85-104) L D 09/04/17 03:56 ABG O2 Saturation 89 % (95-98) L 09/04/17 03:56 PT/INR, D-dimer PT 13.0 Seconds (9.4-12.1) H 09/03/17 16:12 Consult Discharge Plan - Plan Referrals: PHILLY HYMAN [Other] - 09/16/17 10:00 am (THIS IS [facility]) <Tom Moulton H - Last Filed: 09/07/17 14:39> Date of Encounter: 09/07/17 - Constitutional Vitals: Temp Pulse Resp BP Pulse Ox 98.6 F 93 20 122/98 95 09/07/17 11:05 09/07/17 14:01 09/07/17 14:01 09/07/17 11:05 09/07/17 14:01 Internal Medicine: Result - Labs CBC & Chem 7: 09/07/17 04:17 09/07/17 04:17 Labs: Short CBC 09/07/17 Range/Units 04:17 WBC 16.5 H (4.3-11.1) K/mcL Hgb 12.9 (11.5-15.4) g/dL Hct 38.7 (35.3-44.9) % Plt Count 243 (140-400) K/mcL Neutrophils # 15.2 H (1.6-8.9) K/mcL BMP 09/07/17 04:17 Sodium 143 Potassium 3.6 Chloride 109 Carbon Dioxide 25 BUN 32 H Creatinine 1.06 Glucose 141 H Calcium 8.6 - ABG Interpretation ABG results: ABG ABG pH 7.25 pH Units (7.32-7.45) L 09/04/17 03:56 ABG pCO2 47 mmHg (35-45) H 09/04/17 03:56 ABG pO2 65 mmHg (85-104) L D 09/04/17 03:56 ABG O2 Saturation 89 % (95-98) L 09/04/17 03:56 PT/INR, D-dimer PT 13.0 Seconds (9.4-12.1) H 09/03/17 16:12 - Impressions Impressions Chest X-Ray 09/06/17 08:21 IMPRESSION: Interval removal of right central venous catheter and endotracheal tubes. Increasing bilateral interstitial opacities as well as small left pleural effusion. Findings either reflect pneumonia or edema. D/ / 09/06/2017 09:02:05 Shelly García MD / geraldo Interpreting Provider: Shelly García MD - Attending Attestation Acute on chronic hypoxic hypercapnic respiratory failure secondary to acute COPD exacerbation from sepsis due to Pseudomonas pneumonia in combination with the rhinovirus/enterovirus infection Stop Zosyn and start Levaquin, sputum culture grew pansensitive pseudomonas Decrease dose of steroids Patient is a still tachycardic, start Lopressor low dose Oxygen therapy I examined this patient and my medical decision-making was reviewed with the Resident Physician. I agree with the documented findings, disposition and treatment plan as described except to the extent set forth below.
[2017-09-07] MEDS ORDERED: Levofloxacin 750 MG/150 ML 750 MG/150 ML BAG IVPB SCH (15:00)
[2017-09-07] MEDS: MethylPREDNISolone 40 MG/ML VIAL IVP SCH (20:04)
[2017-09-08] MEDS: Ipratropium/Albuterol Neb 3 ML IH SCH ×4 (00:35→11:10)
[2017-09-08] MEDS: *HR* Heparin 5,000 UNIT/ML VIAL SQ SCH (06:10)
[2017-09-08 07:30] VITALS: BP 147/91
[2017-09-08] MEDS: Budesonide/Formoterol 80/4.5 MDI IH SCH (07:43)
[2017-09-08] MEDS: Potassium Chloride Elixir 20 MEQ/15 ML UDC PO SCH (07:57)
[2017-09-08] MEDS: Sucralfate 1 GM TABLET PO SCH (07:57)
[2017-09-08] MEDS: MethylPREDNISolone 40 MG/ML VIAL IVP SCH (07:58)
[2017-09-08] MEDS: Furosemide 20 MG/2 ML VIAL IVP SCH (07:58)
--- NOTE | 2017-09-08 08:01 | Discharge Summary ---
<Jens Traylor - Last Filed: 09/08/17 07:51> Date of Encounter: 09/08/17 Time of Encounter: 07:51 - Discharge Diagnosis (1) Pneumonia Priority: Primary Status: Acute Qualifiers: Pneumonia type: due to Pseudomonas Laterality: bilateral Lung location: unspecified part of lung Qualified Code(s): J15.1 - Pneumonia due to Pseudomonas (2) Acute on chronic respiratory failure with hypoxia and hypercapnia Priority: Primary Status: Acute (3) COPD exacerbation Priority: Primary Status: Acute (4) Hypotension Priority: Secondary Status: Acute Qualifiers: Hypotension type: unspecified hypotension type Qualified Code(s): I95.9 - Hypotension, unspecified (5) DVT prophylaxis Priority: Secondary Status: Acute - Discharge Medications Prescriptions: levoFLOXacin [Levaquin] 750 mg PO Q48H 10 Days #5 tablet Metoprolol [Lopressor] 12.5 mg PO BID #60 tablet predniSONE [PredniSONE] 10 mg PO DAILY 20 Days tablet Home Medications: Albuterol Sulfate [Albuterol Inhaler] 2 puff IH Q4H PRN 09/03/17 [History] Amitriptyline [Elavil] 50 mg PO HS 09/03/17 [History] Budesonide/Formoterol 80/4.5 [Symbicort 80/4.5] 2 gm IH BIDR 09/03/17 [History] Citalopram Hydrobromide [Citalopram HBr] 20 mg PO DAILY 09/03/17 [History] Cyclobenzaprine [Flexeril] 10 mg PO TID PRN 09/03/17 [History] Famotidine [Pepcid] 40 mg PO DAILY 09/03/17 [History] Gabapentin [Neurontin] 300 mg PO QID 09/03/17 [History] Lisinopril/Hydrochlorothiazide [Zestoretic 20-25 mg Tablet] 1 tab PO DAILY 09/03 [History] Montelukast [Singulair] 10 mg PO DAILY 09/03/17 [History] Omeprazole [PriLOSEC] 20 mg PO DAILY 09/03/17 [History] Simvastatin [Zocor] 40 mg PO DAILY 09/03/17 [History] Sucralfate [Carafate] 1 gm PO QID 09/03/17 [History] Metoprolol [Lopressor] 12.5 mg PO BID #60 tablet 09/08/17 [Rx] levoFLOXacin [Levaquin] 750 mg PO Q48H 10 Days #5 tablet 09/08/17 [Rx] predniSONE [PredniSONE] 10 mg PO DAILY 20 Days tablet 09/08/17 [Rx] Allergies/Adverse Reactions: 3 Allergy/AdvReac Type Severity Reaction Status Date / Time No Known Allergies Allergy Verified 09/03/17 15:55 Date of admission: 09/03/17 17:34 Primary care physician: Leodan Koch MD Discharging clinician: Jens Traylor Anticipated date of discharge: 09/08/17 - Patient Status Disposition: Home Health Service Condition: Critical Functional capacity at discharge: uses cane/walker Overall status at discharge: patient is progressing back to baseline - Discharge Instructions Instructions: Pneumonia (DC) Follow Up With: LEODAN KOCH [Other] - 09/16/17 10:00 am (THIS IS [facility]) Additional Instructions: 1. Follow-up with your primary care provider in the next 3-5 days 2. Take all prescriptions as prescribed, any concerns or questions contact her primary care provider. 3. Return to the emergency department if: Worsening of respiratory status, requiring increased oxygen demand, new or worsening respiratory symptoms or any other concerning medical problems. Taper prednisone as follows: 40 mg daily for 5 days, 30 mg daily for 5 days, 20 mg for 5 days, 10 mg for 5 days start metoprolol 12.5 mg twice a day - Diet and Activity Activity: increase activity as tolerated, wear oxygen at all times Diet: advance to your usual diet Interval History: Ms. Green is a 72 year old female with past medical history of hypertension, COPD, depression, GERD and hyperlipidemia. She presents to the ED with complaints of shortness of breath and in acute respiratory distress on 2016. Upon presentation she was found to be in acute respiratory failure with oxygen saturations around 50%,and not responding to interventions requiring intubation and sedation and mechanical ventilation. After intubation and sedation she required levo fed for hypotension with placement of a right internal jugular central line which was placed in the emergency department. Her initial labs demonstrated acute kidney injury with a creatinine of 2.12. Initial chest x-ray was negative for lobar pneumonia. Initially treated for COPD exacerbation. After initial treatment with antibiotics, IV steroids and breathing treatments she demonstrated improvement in her respiration status and passed spontaneous breathing trial with extubation on 09/04/2017. She was transferred to the general medical floor on 09/05/2017 and was demonstrating improvements daily. On 09/06/2017 she sounded very short of breath with bilateral crackles and oxygen saturations on 85% requiring BiPAP and transferred to 2 . ICU stepdown. Repeat chest x-ray demonstrated consolidation and sputum cultures that were collected grew pseudomonal species. She is found to be cachectic, tachycardic, acute respiratory failure, elevated WBC count and hypotensive which responded to IV fluids qualifying her for severe sepsis. She was started on IV Zosyn after reviewing antibiotic susceptibility. She demonstrated significant improvements on 09/07/2017. On her oxygen saturations trended back towards baseline around 3 L nasal cannula oxygen, her symptoms have resolved and she demonstrates clinical improvement. She was seen and evaluated patient bedside and deemed stable for discharge home with close follow-up with her primary care provider. Creatinine clearance 39 - Discharge scripts for levofloxacin 750 mg by mouth every 48 hours for 10 days - Discussed discharge with patient recommend continue wearing nasal cannula oxygen continuously. Hospital course: Ms. Green is a 72 year old female - Time Spent with Patient Total time spent providing and/or coordinating discharge services: - Constitutional Vitals: Temp Pulse Resp BP Pulse Ox 97.6 F 102 16 147/91 93 09/08/17 07:25 09/08/17 07:25 09/08/17 07:43 09/08/17 07:25 09/08/17 07:43 General appearance: Present: cooperative, A&O X 3, pleasant, no acute distress Exam: General: Patient alert, awake, oriented 3, interactive, in no acute distress HEENT: Normocephalic, atraumatic, oral mucosa moist, neck supple trachea midline no palpable lymphadenopathy, no thyromegaly. Chest: Symmetric bilateral correlating with respiratory effort, effort nonlabored. Cardiac: Regular rate and rhythm, Radial pulses 2+ bilateral, posterior tibial and dorsal pedal pulses 2+ bilateral. Respiratory: Diffusely diminished breath sounds bilateral with inspiratory and expiratory crackles. Abdomen: Soft, nontender, positive bowel sounds, no palpable masses appreciated on examination Extremities: Symmetric bilateral, bilateral lower extremities without erythema or edema patient moving all 4 extremities spontaneously. Neurologic: No focal deficits appreciated on examination. Face symmetric, muscle strength symmetric bilateral upper and lower extremities. <KenneyTom - Last Filed: 09/08/17 09:52> Date of Encounter: 09/08/17 Date of admission: 09/03/17 17:34 Primary care physician: Leodan Koch MD Hospital course: Ms. Green is a 72 year old female diagnosed with Acute on chronic hypoxic hypercapnic respiratory failure secondary to acute COPD exacerbation from sepsis due to Pseudomonas pneumonia in combination with the rhinovirus/enterovirus infection - Time Spent with Patient Total time spent providing and/or coordinating discharge services: Greater than 30 minutes (40 min) - Constitutional Vitals: Temp Pulse Resp BP Pulse Ox 97.6 F 106 22 147/91 97 09/08/17 07:25 09/08/17 08:19 09/08/17 08:19 09/08/17 07:25 09/08/17 09:20 - Attending Attestation I examined this patient and my medical decision-making was reviewed with the Resident Physician. I agree with the documented findings, disposition and treatment plan as described except to the extent set forth below
[2017-09-08 08:32] LABS: Basophils # 0.1 K/mcL (0.0-0.2); Basophils % 0.3 %; Hematocrit 40.3 % (35.3-44.9); Hemoglobin 13.4 g/dL (11.5-15.4); Immature Granulocytes % 3.1 % (0-4); Lymphocytes # 1.2 K/mcL (0.6-4.6); Lymphocytes % 7.1 %; Mean Corpuscular HGB Conc 33.3 g/dL (31.6-35.5); Mean Corpuscular Hemoglobin 29.9 pg (28.0-33.3); Mean Platelet Volume 9.9 fL (9.4-12.4); Monocytes # 1.7 K/mcL (0.0-1.3); Monocytes % 9.7 %; Neutrophils # 13.8 K/mcL (1.6-8.9); Platelet Count 269 K/mcL (140-400); Red Blood Count 4.48 M/mcL (3.82-4.97); Red Cell Distribution Width 14.2 % (11.5-14.5); Segmented Neutrophils % 79.8 %
[2017-09-08 08:49] LABS: Albumin 2.9 g/dL (3.5-5.0); Bilirubin,Total 0.5 mg/dL (0.2-1.2); Calcium 8.5 mg/dL (8.6-10.8); Potassium 4.2 mEq/L (3.5-4.5); Total Protein 5.9 g/dL (6.0-8.3)
--- NOTE | 2017-09-08 09:47 | Physician Discharge Referral ---
Home Health/Hosp Referral Info Transfer to: Home Health Provider in Charge Post Discharge: PCP - Diagnosis (1) Pneumonia Priority: Primary Status: Acute (2) Acute on chronic respiratory failure with hypoxia and hypercapnia Priority: Primary Status: Acute (3) COPD exacerbation Priority: Primary Status: Acute (4) Hypotension Priority: Secondary Status: Acute (5) DVT prophylaxis Priority: Secondary Status: Acute - Respiratory Orders Oxygen / L per min (continue 3L and wean as tolerated) Smoking Cessation: Smoking cessation has been advised. For more information, call the [place] [employer] Quit Line at 6-924-NGYV-NOW. - Diet/Nutrition Diet/Nutrition Orders: Cardiac - Activity Activity Orders: Ambulate - Services Needed Following services are medically necessary services: Nursing, Home Health Aide, Physical Therapy - Transfer Medications Prescriptions: levoFLOXacin [Levaquin] 750 mg PO Q48H 10 Days #5 tablet Metoprolol [Lopressor] 12.5 mg PO BID #60 tablet predniSONE [PredniSONE] 10 mg PO DAILY 20 Days tablet Home Medications: Albuterol Sulfate [Albuterol Inhaler] 2 puff IH Q4H PRN 09/03/17 [History] Amitriptyline [Elavil] 50 mg PO HS 09/03/17 [History] Budesonide/Formoterol 80/4.5 [Symbicort 80/4.5] 2 gm IH BIDR 09/03/17 [History] Citalopram Hydrobromide [Citalopram HBr] 20 mg PO DAILY 09/03/17 [History] Cyclobenzaprine [Flexeril] 10 mg PO TID PRN 09/03/17 [History] Famotidine [Pepcid] 40 mg PO DAILY 09/03/17 [History] Gabapentin [Neurontin] 300 mg PO QID 09/03/17 [History] Lisinopril/Hydrochlorothiazide [Zestoretic 20-25 mg Tablet] 1 tab PO DAILY 09/03 [History] Montelukast [Singulair] 10 mg PO DAILY 09/03/17 [History] Omeprazole [PriLOSEC] 20 mg PO DAILY 09/03/17 [History] Simvastatin [Zocor] 40 mg PO DAILY 09/03/17 [History] Sucralfate [Carafate] 1 gm PO QID 09/03/17 [History] Metoprolol [Lopressor] 12.5 mg PO BID #60 tablet 09/08/17 [Rx] levoFLOXacin [Levaquin] 750 mg PO Q48H 10 Days #5 tablet 09/08/17 [Rx] predniSONE [PredniSONE] 10 mg PO DAILY 20 Days tablet 09/08/17 [Rx] Allergies/Adverse Reactions: 3 Allergy/AdvReac Type Severity Reaction Status Date / Time No Known Allergies Allergy Verified 09/03/17 15:55 Certification: Further, I certify that my clinical findings support that this patient is homebound (i.e. absences from home require considerable and taxing effort and are for medical reasons or jehovah's witness services or infrequently or short duration when for other reasons) because: Homebound Reason: Patient requires assistance of a person or device to safely leave home, Leaving home requires considerable and taxing effort due to condition, Severity of cardiac or pulmonary status limits activity tolerance Attestation: My signature below is to certify that this patient is under my care and that I, or nurse practitioner, or a physician's anesthesia assistant working with me, has a face-to -face encounter with this patient.
[2017-09-08] MEDS ORDERED: FLUARIX QUAD 2017-18 36MOS UP/PF 0.5 ML SYRINGE IM ONE (10:54)
== END 2017-09-08 11:57 | disposition home health service (06) | DRG 871 ==
LOC: EMEROO 15:47 → ICNU 17:34 → SUATTDRO 17:34 → ICNU 19:27 → 3NENU 09-05 04:12 → 2NNU 09-06 10:54
PROVIDERS: ADMIT Family Medicine; ATTEND Internal Medicine

== ENCOUNTER 2020-06-01 17:43 | Inpatient (IN) ==
[2020-06-01 19:31] LABS: Basophils # 0.1 K/mcL (0.0-0.2); Basophils % 0.4 %; Eosinophils # 0.2 K/mcL (0.0-0.6); Eosinophils % 1.2 %; Hematocrit 36.9 % (35.3-44.9); Hemoglobin 12.1 g/dL (11.5-15.4); Immature Granulocytes % 0.5 % (0-4); Lymphocytes # 1.7 K/mcL (0.6-4.6); Lymphocytes % 13.5 %; Mean Corpuscular HGB Conc 32.8 g/dL (31.6-35.5); Mean Corpuscular Hemoglobin 30.6 pg (28.0-33.3); Mean Corpuscular Volume 93.2 fL (83.0-100.0); Mean Platelet Volume 9.5 fL (9.4-12.4); Monocytes # 0.7 K/mcL (0.0-1.3); Monocytes % 5.1 %; Neutrophils # 10.2 K/mcL (1.6-8.9); Platelet Count 289 K/mcL (140-400); Red Blood Count 3.96 M/mcL (3.82-4.97); Red Cell Distribution Width 14.5 % (11.5-14.5); Segmented Neutrophils % 79.3 %; White Blood Count 12.9 K/mcL (4.3-11.1)
[2020-06-01 19:41] LABS: BUN/Creatinine Ratio 25 (6-26); Blood Urea Nitrogen 22 mg/dL (8-23); Calcium 8.9 mg/dL (8.6-10.3); Carbon Dioxide 27 mEq/L (23-29); Chloride 109 mEq/L (98-107); Glucose 94 mg/dL (70-105); Osmolality,Calculated 297 (280-300); Potassium 3.5 mEq/L (3.5-5.1); Sodium 142 mEq/L (136-145); eGFR For African Americans > 60 (> 60); eGFR For Non-African Americans > 60 (> 60)
[2020-06-01] MEDS ORDERED: Ondansetron 4 MG/2 ML VIAL IVP PRN (20:08)
[2020-06-01] MEDS ORDERED: Naloxone 0.4 MG/ML INJ IVP PRN (20:08)
[2020-06-01] MEDS ORDERED: Acetaminophen 325 MG TABLET PO PRN (20:08)
[2020-06-01] MEDS ORDERED: 0.9 % Sodium Chloride 1,000 ML IVC SCH (20:15)
[2020-06-01] MEDS: *HR* Heparin 5,000 UNIT/ML VIAL SQ SCH (22:56)
[2020-06-02 02:40] LABS: Basophils % 0.3 %; Eosinophils # 0.3 K/mcL (0.0-0.6); Eosinophils % 2.4 %; Hemoglobin 11.7 g/dL (11.5-15.4); Immature Granulocytes % 0.4 % (0-4); Lymphocytes # 2.1 K/mcL (0.6-4.6); Lymphocytes % 17.2 %; Mean Corpuscular HGB Conc 32.5 g/dL (31.6-35.5); Mean Corpuscular Volume 92.3 fL (83.0-100.0); Mean Platelet Volume 9.4 fL (9.4-12.4); Monocytes # 0.7 K/mcL (0.0-1.3); Monocytes % 5.8 %; Neutrophils # 8.9 K/mcL (1.6-8.9); Platelet Count 267 K/mcL (140-400); Red Cell Distribution Width 14.6 % (11.5-14.5); Segmented Neutrophils % 73.9 %
[2020-06-02 02:46] LABS: Prothrombin Time 11.6 Seconds (9.4-12.1)
[2020-06-02 02:49] LABS: Activated Partial Thrombo Time 47.1 Seconds (26.0-36.0)
[2020-06-02 02:59] LABS: Alanine Aminotransferase 6 Units/L (7-52); Albumin 3.5 g/dL (3.5-5.7); Albumin/Globulin Ratio 1.8 (1.1-2.2); Alkaline Phosphatase 113 Units/L (34-104); Aspartate Amino Transferase 11 Units/L (13-39); BUN/Creatinine Ratio 28 (6-26); Bilirubin,Total 0.6 mg/dL (0.3-1.0); Blood Urea Nitrogen 22 mg/dL (8-23); Calcium 8.3 mg/dL (8.6-10.3); Carbon Dioxide 24 mEq/L (23-29); Chloride 112 mEq/L (98-107); Globulin 1.9 g/dL (2.4-3.5); Glucose 85 mg/dL (70-105); Osmolality,Calculated 297 (280-300); Potassium 3.7 mEq/L (3.5-5.1); Sodium 142 mEq/L (136-145); Total Protein 5.4 g/dL (6.4-8.9); eGFR For African Americans > 60 (> 60); eGFR For Non-African Americans > 60 (> 60)
[2020-06-02] MEDS: *HR* Heparin 5,000 UNIT/ML VIAL SQ SCH (05:12)
[2020-06-02] MEDS ORDERED: Benzonatate 100 MG CAPSULE PO PRN (10:27)
[2020-06-02 15:10] VITALS: BP 150/77
== END 2020-06-02 19:20 | disposition home or self-care (01) | DRG 536 ==
LOC: EMEROOARM 17:43 → 3BNU 17:43
PROVIDERS: ADMIT Internal Medicine; ATTEND Internal Medicine